=== PATIENT | female | born 1960 | race Caucasian/White ===

== ENCOUNTER 2017-02-12 06:37 | Emergency (ER) | payer OTHER ==
[~2017-02-12 06:37] MED LIST: ABILIFY30 MG PO; BUSPIRONE HCL15 MG PO; COZAAR100 MG PO; FIORICET PO; FLONASE0.05 %; HYDROCHLOROTHIA25 MG PO; IMITREX50 MG PO; METHOCARBAMOL750 MG PO; NORCO1 TA1 PO; PRILOSEC20 MG PO; TOPAMAX100 MG PO; TRAMADOL HCL50 MG PO; TRAZODONE HCL50 MG PO; ZOLOFT100 MG PO; [UNRECOGNIZED DRUG - OTHER] PO
--- NOTE | 2017-02-12 09:18 | ED NURSING NOTES ---
Clinical Report - Nurses [facility] [address] [place] [address] 02/12/2017 6:38 Patient: FRANCISCO SIMS TRIAGE Triage time 06:42. Acuity: LEVEL 4. Chief Complaint: HEADACHE. Alert. No acute distress. --06:47 Salome Wang R.N. 06:42 02/12/17. BP: 164/109. HR: 77. RR: 16. O2 saturation: 100% on room air. Temp: 98.1 F (oral). Pain level now: 07/11. --06:47 Salome Wang R.N. Weight: 61.2 kg stated. Height/Length: 60.5 inches Per Patient. BMI: 25.9. --06:45 Salome Wang R.N. Medications Abilify Oral 30mg, HS. Albuterol 90 mcg. Baclofen Oral 10 mg, 3x a day as needed. BuSpar Oral 15 mg, 3x a day. Flonase Nasal 2 sprays, daily. HCTZ 25 mg, daily. Imitrex Oral 50 mg, as needed. Lopressor Oral (Tablet 50 mg), daily. Percocet 5/325mg prn back pain . Prilosec Oral 20 mg, 2x a day. Topamax Oral 100 mg, 2x a day. Zoloft Oral 100 mg, at bedtime. --06:44 Salome Wang R.N. Allergies Codeine. Vicodin. --06:44 Salome Wang R.N. History Arrived by private vehicle. Historian: patient. Primary physician (Bhavesh). This started last night at about 2100. Treatment [employer]: None. PAST MEDICAL HX: Immunizations: up-to-date. SOCIAL HX: Heavy tobacco smoker (cigarette)- less than 1 pack per day. History of drug use. (used marijuana until about 1 month ago, states has new pain managment program with Dr. Ospina). No alcohol use. NUTRITIONAL RISK ASSESSMENT: The nutritional risk assessment revealed no deficiencies. FUNCTIONAL ASSESSMENT: Functional assessment: no impairments noted. --06:47 Salome Wang R.N. PROBLEMS: Dehydration. Diarrhea. Vomiting. Hypokalemia. Stress. Rhabdomyolysis. Anxiety Reaction. Atypical Chest Pain. Acute Pain. Hypertensive Headache. Spondylolysis. Cholecystitis. Abd pain . Muscle Strain, Upper Extremity. Depression. Environmental Allergies. Chronic Back Pain. Degenerative Joint Disease. Headache. Gastroesophageal Reflux. Sinus Problems. Chronic Headache. Arthritis. Fibromyalgia. Dental Pain. Dental Caries. Immunizations. LNMP - Last Normal Menstrual Period. URI. Tetanus Status. Hypertension. Back Pain. Migraine Headache. --06:45 Salome Wang R.N. ADDITIONAL SURGERIES: Back Surgery []. . Inguinal Hernia Repair. Tonsillectomy. Triger finger rt middle finger . Tubal Ligation. --06:45 Salome Wang R.N. Interventions ID band on patient. To treatment room. --06:47 Salome Wang R.N. PHYSICAL ASSESSMENT Ambulatory to room. Patient gowned. GENERAL / NEURO / PSYCH: Alert. Oriented X 4. Appears in no acute distress. Speech within normal limits. HEENT: No facial asymmetry noted. RESPIRATORY: Respirations not labored. CVS: Capillary refill less than 2 seconds. SKIN: Skin is warm and dry. --06:48 Salome Wang R.N. NURSING PROGRESS NOTES Head of bed elevated. Two patient identifiers checked. Call light placed in reach. Side rails up x 1. Bed placed in lowest position. Brakes of bed on. --06:48 Salome Wang R.N. Patient ready for evaluation- chart flagged. --06:48 Salome Wang R.N. 07:41 02/12/2017 Phenergan (Promethazine HCl) IM 25 mg given. Given in the left gluteus ruma. Allergies verified, confirmed 5 rights and sedative warning given to the patient. --07:41 Stefanie Dasilva R.N. 07:41 02/12/2017 Dilaudid (HYDROmorphone HCl PF) IM 2 mg given. Given in the left gluteus ruma. Allergies verified, confirmed 5 rights and sedative warning given to the patient. --07:41 Stefanie Dasilva R.NLast 07:42 02/12/17. --07:42 Stefanie Dasilva R.NLast 07:35 02/12/17. BP: 154/107. HR: 85. RR: 15. O2 saturation: 99%. Pain level now: 07/11. --07:42 Stefanie Dasilva R.NLast 07:45 02/12/17. ( pt ambulated to bathroom.). --07:45 Stefanie Dasilva R.NLast 08:00 02/12/17. ( pt stated her head pain has improved (04/10). Pt reports she took home meds buspar and benedryl in her room after dilaudid and phenergan was administered. This RN reminded the patient that home meds should not be taken while in the ED.). --08:00 Stefanie Dasilva R.NLast 08:08 02/12/17. ( Dr. Jiang notified that pt took home meds benedryl and buspar in room.). --08:08 Stefanie Dasilva R.NLast 08:13 02/12/17. ( pt groggy but awake and oriented. head of bed raised to 30 degrees.). --08:13 Stefanie Dasilva R.NLast 08:11 02/12/17. BP: 129/80. HR: 61. RR: 11. O2 saturation: 95%. --08:13 Stefanie Dasilva R.N. 08:58 02/12/17. --08:58 Stefanie Dasilva R.NLast 08:57 02/12/17. BP: 110/66. HR: 62. RR: 12. O2 saturation: 94%. --08:58 Stefanie Dasilva R.NLast 08:58 02/12/17. ( pt ambulated to bathroom.). --08:58 Stefanie Dasilva R.NLast DISPOSITION / DISCHARGE 09:15 02/12/17. Condition at departure: improved. No learning barriers present. Discharge instructions provided and reviewed with the patient. Treatments reviewed. Patient verbalized understanding. Written instructions provided in Danish. The patient was discharged by the physician. She was discharged home. She left the Emergency Department ambulatory. ( pt contacted transport service for ride. this RN spoke with the transport service to confirm the pt's discharge.). --09:15 Stefanie Dasilva R.N. 09:12 02/12/17. BP: 157/112. HR: 58. RR: 13. O2 saturation: 100%. Temp: deferred. Pain level now: 12/11. --09:15 Stefanie Dasilva R.N. 09:20 02/12/17. ( Dr. Link notified of elevated BP 157/112 upon discharge.). --09:20 Stefanie Dasilva R.N. 09:21 02/12/17. Departure time: :20. --09:21 Stefanie Dasilva R.N. Locked/Released at 02/12/2017 9:22 by Stefanie Dasilva R.N.
--- NOTE | 2017-02-12 09:18 | ED CLINICAL REPORT ---
Clinical Report - Physicians/Mid Levels [facility] [address] [place] [address] 02/12/2017 6:38 Patient: FRANCISCO SISM Time Seen: 07:02 Feb 12 2017. Arrived- By private vehicle. Historian- patient. CPT: ER phys charges level 4 (#[id number]). HISTORY OF PRESENT ILLNESS Is still present. Chief Complaint: HEADACHE. This started last night. Onset during light activity. It is described as similar to previous headaches and "pain". Located in the occipital region. At its maximum, severity described as moderate. When seen in the E.D., severity described as moderate. Modifying factors: worsened by bright light and moving head; relieved by rest. The patient has had photophobia and nausea. No preceding symptoms or blurred vision. Similar symptoms previously: Several times, as bad. Diagnosis: migraine. Recent medical care: Not recently seen/assessed. REVIEW OF SYSTEMS No fever, muscle aches, sinus pressure, ear pain or sore throat. No head injury, chest pain, difficulty breathing, cough or abdominal pain. No diarrhea, pain with urination, skin rash, enlarged lymph nodes or back pain. All systems otherwise negative, except as recorded above. PAST HISTORY Dehydration. Diarrhea. Vomiting. Hypokalemia. Stress. Rhabdomyolysis. Anxiety Reaction. Atypical Chest Pain. Acute Pain. Hypertensive Headache. Spondylolysis. Cholecystitis. Abd pain . Muscle Strain, Upper Extremity. Depression. Environmental Allergies. Chronic Back Pain. Degenerative Joint Disease. Headache. Gastroesophageal Reflux. Sinus Problems. Chronic Headache. Arthritis. Fibromyalgia. Dental Pain. Dental Caries. Immunizations. LNMP - Last Normal Menstrual Period. URI. Tetanus Status. Hypertension. Back Pain. Migraine Headache. --06:45 Salome Wang R.N. ADDITIONAL SURGERIES: Back Surgery []. . Inguinal Hernia Repair. Tonsillectomy. Triger finger rt middle finger . Tubal Ligation. Medications: Abilify Oral 30mg, HS. Albuterol 90 mcg. Baclofen Oral 10 mg, 3x a day as needed. BuSpar Oral 15 mg, 3x a day. Flonase Nasal 2 sprays, daily. HCTZ 25 mg, daily. Imitrex Oral 50 mg, as needed. Lopressor Oral (Tablet 50 mg), daily. Percocet 5/325mg prn back pain . Prilosec Oral 20 mg, 2x a day. Topamax Oral 100 mg, 2x a day. Zoloft Oral 100 mg, at bedtime. Allergies: Codeine. Vicodin. SOCIAL HISTORY Heavy tobacco smoker (cigarette)- 1 pack per day. History of drug use: marijuana. No alcohol use. ADDITIONAL NOTES The nursing notes have been reviewed. PHYSICAL EXAM Vital Signs: 02/12/2017 06:42 BP: 164/109. HR: 77. RR: 16. O2 saturation: 100%. Temp: 98.1 F. Pain level now: 8/10. Appearance: Alert. Appears to be in pain. Patient in moderate distress. Eyes: Photophobia present. Pupils equal, round and reactive to light. ENT: Ears normal. Nose normal. Pharynx normal. Neck: Normal inspection. Neck supple. No meningeal signs. CVS: Normal heart rate and rhythm. Heart sounds normal. Pulses normal. Respiratory: No respiratory distress. Breath sounds normal. Abdomen: Soft and nontender. Back: Normal inspection. Skin: Skin warm. Normal skin color. No rash. Extremities: Extremities exhibit normal ROM. No lower extremity edema. Neuro: Oriented X 3. Alert. Mood/affect normal. Speech normal. Cranial nerves normal (as tested). No cerebellar findings. No motor deficit. No sensory deficit. Reflexes normal. PROGRESS AND PROCEDURES Course of Care: Pt took her own sedating medications while in the room that became additive to the dilaudid and phenergan and desaturated to 89%. 02 applied and sat stable but will need obseravtion until medications wear off and sedation stable. Pt sedation slowly resolved and the patient was safe to discharge home. Patient/family counseled. Disposition: Discharged. Condition: stable and improved. CLINICAL IMPRESSION Acute and chronic recurrent migraine headache without aura, with status migrainosus- poorly controlled. INSTRUCTIONS Warnings: Further evaluation is necessary. SEDATIVE MEDICATION: You were given sedative medication during your visit. Do not drive or operate dangerous machinery. Your Current Medications: CONTINUE TAKING THE FOLLOWING MEDICATIONS: Abilify Oral : 30mg HS. Albuterol : 90 mcg. Baclofen Oral : 10 mg 3x a day, prn. BuSpar Oral : 15 mg 3x a day. Flonase Nasal : 2 sprays daily. HCTZ : 25 mg daily. Imitrex Oral : 50 mg, prn. Lopressor Oral : Tablet 50 mg, daily. Percocet 5/325mg prn back pain *. Prilosec Oral : 20 mg 2x a day. Topamax Oral : 100 mg 2x a day. Zoloft Oral : 100 mg at bedtime. Follow-up: Follow up with your doctor in one week. Call for an appointment. Understanding of the discharge instructions verbalized by patient. (Electronically signed by Garo Jiang MD 02/14/2017 10:19)
--- NOTE | 2017-02-12 09:19 | ED ORDER SUMMARY ---
..... Patient: FRANCISCO SIMS OrderSheet [facility] VisitID: [id number] [address] [place] [address] 56y, F Registration Date/Time: 02/12/2017 ORDER SHEET Weight: 61.2 kg (stated) Allergies: Codeine, Vicodin GENERAL ORDERS: MEDICATION ORDERS: Dilaudid IM 2 mg (NOW) (07:02/12/2017 Maurice ASENCIO) (Ack 7:27 RMarsnaman R.N.) (7:41 RMarsnaman R.N.) Phenergan IM 25 mg (NOW) (07:02/12/2017 Maurice ASENCIO) (Ack 7:27 Isabela R.N.) (7:41 RMarsnaman R.N.) IV FLUIDS: ORDER SHEET NOTES: [Electronically signed by Stefanie Dasilva R.N. (09:02/12/2017)] [Electronically signed by Garo Jiang MD (10:19 02/14/2017)] [Electronically locked/signed by Stefanie Dasilva R.N. (09:02/12/2017)]
--- NOTE | 2017-02-12 09:19 | ED ORDER SUMMARY ---
..... Patient: FRANCISCO SIMS OrderSheet [facility] VisitID: [id number] [address] [place] [address] 56y, F Registration Date/Time: 02/12/2017 ORDER SHEET Weight: 61.2 kg (stated) Allergies: Codeine, Vicodin GENERAL ORDERS: MEDICATION ORDERS: Dilaudid IM 2 mg (NOW) (07:02/12/2017 Maurice ASENCIO) (Ack 7:27 RMarsnaman R.N.) (7:41 RMarsnaman R.N.) Phenergan IM 25 mg (NOW) (07:02/12/2017 Maurice ASENCIO) (Ack 7:27 Isabela R.N.) (7:41 RMarsnaman R.N.) IV FLUIDS: ORDER SHEET NOTES: [Electronically signed by Stefanie Dasilva R.N. (09:02/12/2017)] [Electronically signed by Garo Jiang MD (10:19 02/14/2017)] [Electronically locked/signed by Stefanie Dasilva R.N. (09:02/12/2017)]
--- NOTE | 2017-02-14 10:19 | ED MED RECONCILIATION SUMMARY ---
Patient: FRANCISCO SIMS Medication Reconciliation Report [facility] VisitID: [id number] [address] [place] [address] 56y, F Registration Date/Time: 02/12/2017 Weight: 61.2 kg Height/Length: 60 in. BMI: 25.9 ALLERGIES: Codeine, Vicodin The patient's Home Medications are listed below: CONTINUE TAKING THE FOLLOWING MEDICATIONS: Abilify Oral 30mg, HS Albuterol 90 mcg Baclofen Oral 10 mg, 3x a day BuSpar Oral 15 mg, 3x a day Flonase Nasal 2 sprays, daily HCTZ 25 mg, daily Imitrex Oral 50 mg Lopressor Oral (50 mg), daily Percocet 5/325mg prn back pain Prilosec Oral 20 mg, 2x a day Topamax Oral 100 mg, 2x a day Zoloft Oral 100 mg, at bedtime The source(s) of the original Home Medication information: Not obtained. The following Medications were given to the patient in the Emergency Department: Phenergan [IM] IM 25 mg, administered: 02/12/2017 7:41:00 AM Dilaudid [IM] IM 2 mg, administered: 02/12/2017 7:41:00 AM The following Medications were prescribed to the patient: None.
--- NOTE | 2017-02-14 10:19 | ED MAR SUMMARY ---
..... Medication Administration Record [facility] [address] [place] [address] Patient: FRANCISCO SIMS Visit ID: [id number] 56y, F Weight: 61.2 kg Height/Length: 60.5 in BMI: 25.9 ALLERGIES: Codeine, Vicodin Given 07:02/12/2017 Stefanie Dasilva, RLastN. Medication Administered: DILAUDID [IM] (HYDROMORPHONE HCL PF), Dose: 2 mg IM. Medication Ordered: Dilaudid IM 2 mg (NOW). Given 07:02/12/2017 Stefanie Dasilva, RLastN. Medication Administered: PHENERGAN [IM] (PROMETHAZINE HCL), Dose: 25 mg IM. Medication Ordered: Phenergan IM 25 mg (NOW).
--- NOTE | 2017-02-14 10:19 | ED MED RECONCILIATION SUMMARY ---
Patient: FRANCISCO SIMS Medication Reconciliation Report [facility] VisitID: [id number] [address] [place] [address] 56y, F Registration Date/Time: 02/12/2017 Weight: 61.2 kg Height/Length: 60 in. BMI: 25.9 ALLERGIES: Codeine, Vicodin The patient's Home Medications are listed below: CONTINUE TAKING THE FOLLOWING MEDICATIONS: Abilify Oral 30mg, HS Albuterol 90 mcg Baclofen Oral 10 mg, 3x a day BuSpar Oral 15 mg, 3x a day Flonase Nasal 2 sprays, daily HCTZ 25 mg, daily Imitrex Oral 50 mg Lopressor Oral (50 mg), daily Percocet 5/325mg prn back pain Prilosec Oral 20 mg, 2x a day Topamax Oral 100 mg, 2x a day Zoloft Oral 100 mg, at bedtime The source(s) of the original Home Medication information: Not obtained. The following Medications were given to the patient in the Emergency Department: Phenergan [IM] IM 25 mg, administered: 02/12/2017 7:41:00 AM Dilaudid [IM] IM 2 mg, administered: 02/12/2017 7:41:00 AM The following Medications were prescribed to the patient: None.
--- NOTE | 2017-02-14 10:19 | ED MAR SUMMARY ---
..... Medication Administration Record [facility] [address] [place] [address] Patient: FRANCISCO SIMS Visit ID: [id number] 56y, F Weight: 61.2 kg Height/Length: 60.5 in BMI: 25.9 ALLERGIES: Codeine, Vicodin Given 07:02/12/2017 Stefanie Dasilva, RLastN. Medication Administered: DILAUDID [IM] (HYDROMORPHONE HCL PF), Dose: 2 mg IM. Medication Ordered: Dilaudid IM 2 mg (NOW). Given 07:02/12/2017 Stefanie Dasilva, RLastN. Medication Administered: PHENERGAN [IM] (PROMETHAZINE HCL), Dose: 25 mg IM. Medication Ordered: Phenergan IM 25 mg (NOW).
--- NOTE | 2017-02-14 10:19 | ED DISCHARGE INSTRUCTIONS ---
Patient: FRANCISCO SIMS General Instructions [facility] VisitID: [id number] [address] [place] [address] 56y, F Registration Date/Time: 02/12/2017 Acute and chronic recurrent migraine headache without aura, with status migrainosus- poorly controlled. INSTRUCTIONS Warnings: Further evaluation is necessary. SEDATIVE MEDICATION: You were given sedative medication during your visit. Do not drive or operate dangerous machinery. Your Current Medications: CONTINUE TAKING THE FOLLOWING MEDICATIONS: Abilify Oral : 30mg HS. Albuterol : 90 mcg. Baclofen Oral : 10 mg 3x a day, prn. BuSpar Oral : 15 mg 3x a day. Flonase Nasal : 2 sprays daily. HCTZ : 25 mg daily. Imitrex Oral : 50 mg, prn. Lopressor Oral : Tablet 50 mg, daily. Percocet 5/325mg prn back pain *. Prilosec Oral : 20 mg 2x a day. Topamax Oral : 100 mg 2x a day. Zoloft Oral : 100 mg at bedtime. Follow-up: Follow up with your doctor in one week. Call for an appointment. Understanding of the discharge instructions verbalized by patient. ADDITIONAL INFORMATION Migraine Headache Migraine headaches are related to changes in blood flow to the brain. This causes throbbing or constant pain on one or both sides of the head. The pain may last from a few hours to several days. There is usually nausea, vomiting, sensitivity to light and sound, and blurred vision. A migraine attack may be triggered by emotional stress, hormone changes during the menstrual cycle, oral contraceptives, alcohol use, certain foods containing tyramine, eye strain, weather changes, missing meals, or too little or too much sleep. Home Care For This Headache: 1) If you were given pain medicine for this headache, do not drive yourself home . Arrange for a ride, instead. When you get home, try to sleep. You should feel much better when you wake up. 2) Migraine headaches may improve with an ice pack on the forehead or at the base of the skull. Heat to the back of your neck may relieve any neck spasm. 3) Drink only clear liquids or eat a very light diet to avoid nausea/vomiting until symptoms improve. Preventing Future Headaches: 1) Pay attention to those factors that seem to trigger your headache. Try to avoid them when you can. If you have frequent headaches, it is useful to keep a diary of what you were doing, feeling or eating in the hours before each attack. Show this to your doctor to help find the cause of your headaches. a) If you feel that stress is a factor in your headaches, look at the sources of stress in your life. Find ways to release the build-up of those stresses by using regular exercise, relaxation methods (yoga, meditation), bio-feedback or simply taking time-out for yourself. For more information about this, consult your doctor or go to a local bookstore and review books and tapes on this subject. b) Tyramine is a substance present in the following foods : chocolate, yogurt, all cheeses except cottage cheese and cream cheese. smoked or pickled fish and meat (including guerrero, caviar, bologna, pepperoni, salami), liver, avocados, bananas, figs, raisins, and red wine. Be aware that these foods may trigger a migraine in some persons. Try taking these foods out of your diet for 1-2 months to see if this reduces headache frequency. Treating Future Attacks: 1) At the first sign of a headache, take time out if possible. Find a quiet, dark, comfortable place to sit or lie down. Let yourself relax or sleep. 2) An ice pack on the forehead or area of greatest pain may help. If you are having muscle spasm and tightness of the neck, a heating pad and massage to this area may be helpful. 3) If you have been prescribed a medicine to stop a migraine headache, use this at the very first warning sign of the headache (aura or initial pain) for best results. Follow Up with your doctor if the headache is not better within the next 24 hours. If you have frequent headaches you should discuss a treatment plan with your primary care doctor. Ask if you can have medicine to take at home the next time you get a bad headache. Poorly controlled chronic headaches may require a referral to a neurologist (headache specialist). Get Prompt Medical Attention if any of the following occur: Your head pain gets worse, or does not improve within 24 hours Repeated vomiting (cant keep liquids down) Sinus or ear or throat pain (not already reported) Fever of 100.4 F (38 C) or higher, or as directed by your healthcare provider Stiff neck Extreme drowsiness, confusion or fainting Dizziness, vertigo (dizziness with spinning sensation) Weakness of an arm or leg or one side of the face Difficulty with speech or vision You have been given the following additional information: Headache, Migraine (Classical) (Electronically signed by Garo Jiang MD 02/14/2017 10:19)
== END 2017-02-12 09:20 | disposition home or self-care (01) ==
LOC: ED SRH 06:37
DX: G43.011 Migraine without aura, intractable, with status migrainosus (principal); F17.210 Nicotine dependence, cigarettes, uncomplicated; I10 Essential (primary) hypertension; Z79.899 Other long term (current) drug therapy; Z88.5 Allergy status to narcotic agent

== ENCOUNTER 2017-02-18 19:29 | Emergency (ER) | payer OTHER ==
--- NOTE | 2017-02-18 22:26 | ED NURSING NOTES ---
Clinical Report - Nurses [facility] [address] [place] [address] 02/18/2017 19:30 Patient: FRANCISCO SIMS TRIAGE Triage time 20:15. Acuity: LEVEL 3. Chief Complaint: (Hypertension). --20:21 Sheriff Proctor R.N. 20:14 02/18/17. BP: 167/98. HR: 75. RR: 18. O2 saturation: 97%. Temp: 97.2 F. Pain level now: 03/11. --20:21 Sheriff Proctor R.N. 20:14 02/18/17. BP: 167/98. HR: 75. RR: 18. O2 saturation: 97%. Temp: 97.2 F. Pain level now: 03/11. --20:22 Sheriff Proctor R.N. Weight: 61.2 kg estimated. Height/Length: 60.5 inches Estimated. BMI: 25.9. --02:46 Salome Wang R.N. Medications Abilify Oral 30mg, HS. Albuterol 90 mcg. Baclofen Oral 10 mg, 3x a day as needed. BuSpar Oral 15 mg, 3x a day. Flonase Nasal 2 sprays, daily. HCTZ 25 mg, daily. Imitrex Oral 50 mg, as needed. Lopressor Oral (Tablet 50 mg), daily. Percocet 5/325mg prn back pain . Prilosec Oral 20 mg, 2x a day. Topamax Oral 100 mg, 2x a day. Zoloft Oral 100 mg, at bedtime. --20:18 Sheriff Proctor R.N. Allergies Codeine. Vicodin. --20:18 Sheriff Proctor R.N. History Arrived by private vehicle. Historian: patient. Unaccompanied. Onset. (1 week). ( Patient noted blood pressure going up in the past week despite on blood pressure medications.. B/P 187/177 at home, taken at 1830.). SOCIAL HX: Smoker- current status unknown (8 cigarettes daily.). Occasional alcohol use. No drug use. FALL RISK ASSESSMENT: Fall risk assessment completed. No fall risk identified. NUTRITIONAL RISK ASSESSMENT: The nutritional risk assessment revealed no deficiencies. FUNCTIONAL ASSESSMENT: Functional assessment: no impairments noted. LEARNING NEEDS ASSESSMENT: The learning needs assessment revealed no barriers. SKIN INTEGRITY ASSESSMENT: Skin integrity risk assessment completed. No skin integrity risk identified. --20:21 Sheriff Proctor R.N. ( [place] sharp pain on the chest about an hour ago. Denies chest pain, but discomfort.). --20:24 Sheriff Proctor R.N. PROBLEMS: Dehydration. Diarrhea. Vomiting. Hypokalemia. Stress. Rhabdomyolysis. Anxiety Reaction. Atypical Chest Pain. Acute Pain. Normal Exam. Hypertensive Headache. Spondylolysis. Cholecystitis. Abd pain . Muscle Strain, Upper Extremity. Depression. Environmental Allergies. Chronic Back Pain. Degenerative Joint Disease. Headache. Gastroesophageal Reflux. Sinus Problems. Chronic Headache. Arthritis. Fibromyalgia. Dental Pain. Dental Caries. Immunizations. LNMP - Last Normal Menstrual Period. URI. Tetanus Status. Hypertension. Back Pain. Migraine Headache. --20:19 Sheriff Proctor R.N. Interventions ID band on patient. To room. --20:21 Sheriff Proctor R.N. PHYSICAL ASSESSMENT Ambulatory to room. GENERAL / NEURO / PSYCH: Alert. Oriented X 4. HEENT: Pupils equal, round and reactive to light. No facial asymmetry noted. Mucous membranes are pink. RESPIRATORY: Respirations not labored. CVS: Capillary refill less than 2 seconds. Pulses within normal limits. SKIN: Skin is warm and dry. --20:24 Sheriff Proctor R.N. NURSING PROGRESS NOTES Patient gowned. Head of bed elevated. Two patient identifiers checked. Call light placed in reach. Side rails up x 2. Bed placed in lowest position. Brakes of bed on. Patient ready for evaluation- chart flagged. --20:25 Sheriff Proctor R.N. 21:05 02/18/2017 Site #1 started via IV in the left antecubital space with an 20g angiocath, with aseptic technique and good blood return; one attempt. Blood drawn: rainbow set. Labeled in the presence of the patient and sent to the lab. Saline lock flushed with 10 mL saline. --21:05 Sheriff Proctor R.N. 21:05 02/18/2017 Lopressor (Metoprolol Tartrate) IVP 5 mg given over 1 minute(s) via site #1. Allergies verified and confirmed 5 rights. IV patency established site checked: no pain, redness, or swelling flushed thoroughly pre- and post-medication administration. IVP given by RN. --21:05 Sheriff Proctor R.N. 21:46 02/18/17. BP: 131/73. HR: 72. RR: 18. O2 saturation: 98%. Temp: 98.4 F. Pain level now: 01/11. --21:48 Sheriff Proctor R.N. DISPOSITION / DISCHARGE 22:36 02/18/2017 Site #1 removed upon discharge. Catheter intact. Manual pressure and bandage applied. --22:36 Salome Wang R.N. Condition at departure: improved and stable. No learning barriers present. Discharge instructions provided and reviewed with the patient. Patient verbalized understanding. Written instructions provided in Yakut. The patient was discharged home. She left the Emergency Department ambulatory and via private vehicle. --22:36 Salome Wang R.N. 22:35 02/18/17. BP: 120/75. HR: 71. RR: 15. O2 saturation: 98% on room air. Temp: deferred. Pain level now: 0/10. --22:36 Salome Wang R.N. Locked/Released at 02/19/2017 2:47 by Salome Wang R.N.
--- NOTE | 2017-02-18 22:26 | ED ORDER SUMMARY ---
..... Patient: FRANCISCO SIMS OrderSheet [facility] VisitID: [id number] [address] [place] [address] 57y, F Registration Date/Time: 02/18/2017 ORDER SHEET Weight: 61.2 kg (estimated) Allergies: Codeine, Vicodin GENERAL ORDERS: Casing Trimmer (Continuous) (20:44 02/18/2017 HBivens A.R.N.P.) (Ack 20:58 ALawrence ER Tech1) CBC w Diff Urgent (20:44 02/18/2017 HBivens A.R.N.P.) (Ack 20:58 ALawrence ER Tech1) BMP Urgent (20:44 02/18/2017 HBivens A.R.N.P.) (Ack 20:58 ALawrence ER Tech1) MEDICATION ORDERS: IV FLUIDS: Lopressor IV 5 mg (HIGH ALERT MEDICATION, NOW) (20:44 02/18/2017 HBivens A.R.N.P.) (21:05 SSambou R.N.) IV Saline Lock (20:44 02/18/2017 HBivens A.R.N.P.) (21:05 SSambou R.N.) ORDER SHEET NOTES: [Electronically signed by Dasha Robbins A.R.N.P. (23:07 02/18/2017)] [Electronically signed by Salome WangNLast (02:47 02/19/2017)] [Electronically locked/signed by Salome WangNLast (02:47 02/19/2017)]
--- NOTE | 2017-02-18 22:26 | ED CLINICAL REPORT ---
Clinical Report - Physicians/Mid Levels [facility] [address] [place] [address] 02/18/2017 19:30 Patient: FRANCISCO SIMS Time Seen: 20:33; initial patient contact, initial documentation, patient care assumed. Arrived- By private vehicle. Historian- patient. HISTORY OF PRESENT ILLNESS Chief Complaint: BLOOD PRESSURE ELEVATED. At its maximum, severity described as moderate. When seen in the E.D., severity described as moderate. This started about 3 weeks ago and is still present. No current or associated symptoms. 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 Similar symptoms previously: Several times, as bad. Recent medical care: The patient was seen recently at this facility in the emergency department and a clinic. ( seen here a few weeks ago for headache, f/u at clinic and pressure was high then too). REVIEW OF SYSTEMS No fever, sore throat, sinus drainage, nasal congestion or cough. No difficulty breathing, chest pain, vomiting, diarrhea or headache. No double vision. All systems otherwise negative, except as recorded above. PAST HISTORY See nurses notes. PROBLEMS: Dehydration. Diarrhea. Vomiting. Hypokalemia. Stress. Rhabdomyolysis. Anxiety Reaction. Atypical Chest Pain. Acute Pain. Normal Exam. Hypertensive Headache. Spondylolysis. Cholecystitis. Abd pain . Muscle Strain, Upper Extremity. Depression. Environmental Allergies. Chronic Back Pain. Degenerative Joint Disease. Headache. Gastroesophageal Reflux. Sinus Problems. Chronic Headache. Arthritis. Fibromyalgia. Dental Pain. Dental Caries. Immunizations. LNMP - Last Normal Menstrual Period. URI. Tetanus Status. Hypertension. Back Pain. Migraine Headache. --20:19 Sambou, Drum Plater, R.N. SOCIAL HISTORY Light tobacco smoker. Occasional alcohol use. No drug use. No recent travel. Is a local resident. FAMILY HISTORY Negative. ADDITIONAL NOTES The nursing notes have been reviewed with agreement regarding the chief complaint, HPI, ROS, PMH and patient medications and allergies. PHYSICAL EXAM Vital Signs: 02/18/2017 20:15 BP: 167/98. HR: 75. RR: 18. O2 saturation: 97%. Temp: 97.2 F. Pain level now: 10. Have been reviewed as abnormal and appear to be correct. Hypertensive. Heart rate normal. Respiratory rate normal. Temperature normal. Oxygen saturation normal. Appearance: Alert. No acute distress. Eyes: Pupils equal, round and reactive to light. Eyes normal inspection. ENT: Ears normal. Nose normal. Pharynx normal. Neck: Normal inspection. Neck supple. CVS: Normal heart rate and rhythm. Heart sounds normal. Pulses normal. Respiratory: No respiratory distress. Breath sounds normal. Chest nontender. Back: Normal inspection. Skin: Skin warm and dry. Normal skin color. No rash. Normal skin turgor. Extremities: Extremities exhibit normal ROM. No lower extremity edema. Neuro: Oriented X 3. No motor deficit. No sensory deficit. LABS, X-RAYS, AND EKG Laboratory Tests: CBC w Diff: (SWATI: 02/18/2017 20:50) ( MsgRcvd 02/18/2017 21:03) Final results Test Result Flag Units (Reference) WHITE BLOOD COUNT 7.9 K/uL (4.5-11.5) RED BLOOD COUNT 3.71 L M/uL (4.00-5.20) HEMOGLOBIN 11.7 L gm/dL (12.0-16.0) HEMATOCRIT 34.1 L % (36.0-46.0) MEAN CELL VOLUME 92 fL (80-100) MEAN CORPUSCULAR HGB 32 pg (26-34) MEAN CORPUSCULAR HGB CONC 34 g/dL (31-37) RED CELL DISTRIBUTION WIDTH 13.4 % (11.6-14.8) PLATELET COUNT 204 K/uL (150-400) NEUTROPHIL % 46.8 L % (50-75) LYMPH % 42.0 H % (25-40) MONO % 9.3 % (3-14) EOSINOPHIL % 1.7 % (0-4) BASOPHIL % 0.2 % (0-2) BMP: (SWATI: 02/18/2017 20:50) ( MsgRcvd 02/18/2017 21:29) Final results Test Result Flag Units (Reference) GLUCOSE 107 mg/dL (70-110) BUN 18 mg/dL (7-18) CREATININE 0.9 mg/dL (0.6-1.3) Estimated GFR >60 mL/min Estimated GFR- >60 mL/min Note: Persistent reduction over 3 months in eGFR<60 mL/min/1.73 m2 defines CKD. Patients with eGFR values>=60 mL/min/1.73 m2 may also have CKD if evidence ofpersistent proteinuria. Additional information may be foundat www.kidney.org. SODIUM 142 mmol/L (136-145) POTASSIUM 3.7 mmol/L (3.5-5.1) CHLORIDE 106 mmol/L (98-107) CARBON DIOXIDE 25 mmol/L (21-32) CALCIUM 9.0 mg/dL (8.5-10.1) . PROGRESS AND PROCEDURES Course of Care: 5. pt telling me thank you for the care and stated I was one of her favorite and she felt much better and she always enjoys seeing me when she comes in. 02/18/2017 21:46 BP: 131/73. HR: 72. RR: 18. O2 saturation: 98%. Temp: 98.4 F. Pain level now: 2/10. Vital Signs: have been reviewed as normal and appear to be correct. Patient counseled in person regarding the patient's stable condition and diagnosis. 21:53. Differential Diagnosis: Other possible considerations: htn, tia, cva, headache. Above considerations are based on history, physical exam and laboratory data. Differential diagnosis was discussed with patient. Disposition: Discharged home in good and improved condition (22:25). Condition: good and stable. CLINICAL IMPRESSION Uncontrolled hypertension. INSTRUCTIONS Warnings: GENERAL WARNINGS: Return or contact your physician immediately if your condition worsens or changes unexpectedly, if not improving as expected, or if other problems arise. Specifically return if problem worsens. Follow-up: Follow up with your doctor tomorrow even if well. Call for an appointment. Summary of care provided to patient. Understanding of the discharge instructions verbalized by patient. (Electronically signed by Dasha Robbins A.R.N.P. 02/18/2017 23:07)
--- NOTE | 2017-02-18 22:26 | ED ORDER SUMMARY ---
..... Patient: FRANCISCO SIMS OrderSheet [facility] VisitID: [id number] [address] [place] [address] 57y, F Registration Date/Time: 02/18/2017 ORDER SHEET Weight: 61.2 kg (estimated) Allergies: Codeine, Vicodin GENERAL ORDERS: Ortho/Prosthetic Aide (Continuous) (20:44 02/18/2017 HBivens A.R.N.P.) (Ack 20:58 ALawrence ER Tech1) CBC w Diff Urgent (20:44 02/18/2017 HBivens A.R.N.P.) (Ack 20:58 ALawrence ER Tech1) BMP Urgent (20:44 02/18/2017 HBivens A.R.N.P.) (Ack 20:58 ALawrence ER Tech1) MEDICATION ORDERS: IV FLUIDS: Lopressor IV 5 mg (HIGH ALERT MEDICATION, NOW) (20:44 02/18/2017 HBivens A.R.N.P.) (21:05 SSambou R.N.) IV Saline Lock (20:44 02/18/2017 HBivens A.R.N.P.) (21:05 SSambou R.N.) ORDER SHEET NOTES: [Electronically signed by Dasha Robbins A.R.N.P. (23:07 02/18/2017)] [Electronically signed by Salome WangNLast (02:47 02/19/2017)] [Electronically locked/signed by Salome WangNLast (02:47 02/19/2017)]
--- NOTE | 2017-02-19 02:48 | ED MED RECONCILIATION SUMMARY ---
Patient: FRANCISCO SIMS Medication Reconciliation Report [facility] VisitID: [id number] [address] [place] [address] 57y, F Registration Date/Time: 02/18/2017 Weight: 61.2 kg Height/Length: (not available) BMI: 25.9 ALLERGIES: Codeine, Vicodin The patient's Home Medications are listed below: THE FOLLOWING MEDICATIONS NEED TO BE RECONCILED: Abilify Oral 30mg, HS Albuterol 90 mcg Baclofen Oral 10 mg, 3x a day BuSpar Oral 15 mg, 3x a day Flonase Nasal 2 sprays, daily HCTZ 25 mg, daily Imitrex Oral 50 mg Lopressor Oral (50 mg), daily Percocet 5/325mg prn back pain Prilosec Oral 20 mg, 2x a day Topamax Oral 100 mg, 2x a day Zoloft Oral 100 mg, at bedtime The source(s) of the original Home Medication information: Not obtained. The following Medications were given to the patient in the Emergency Department: Lopressor [IVP] IVP 5 mg, administered: 02/18/2017 9:05:00 PM The following Medications were prescribed to the patient: None.
--- NOTE | 2017-02-19 02:48 | ED MAR SUMMARY ---
..... Medication Administration Record [facility] [address] [place] [address] Patient: FRANCISCO SIMS Visit ID: [id number] 57y, F Weight: 61.2 kg Height/Length: 60.5 in BMI: 25.9 ALLERGIES: Codeine, Vicodin Given 21:05 02/18/2017 Sheriff Proctor R.N. Medication Administered: LOPRESSOR [IVP] (METOPROLOL TARTRATE), Dose: 5 mg IVP over 1 minute(s), Site: #1 left AC. Medication Ordered: Lopressor IV 5 mg (HIGH ALERT MEDICATION, NOW).
--- NOTE | 2017-02-19 02:48 | ED MED RECONCILIATION SUMMARY ---
Patient: FRANCISCO SIMS Medication Reconciliation Report [facility] VisitID: [id number] [address] [place] [address] 57y, F Registration Date/Time: 02/18/2017 Weight: 61.2 kg Height/Length: (not available) BMI: 25.9 ALLERGIES: Codeine, Vicodin The patient's Home Medications are listed below: THE FOLLOWING MEDICATIONS NEED TO BE RECONCILED: Abilify Oral 30mg, HS Albuterol 90 mcg Baclofen Oral 10 mg, 3x a day BuSpar Oral 15 mg, 3x a day Flonase Nasal 2 sprays, daily HCTZ 25 mg, daily Imitrex Oral 50 mg Lopressor Oral (50 mg), daily Percocet 5/325mg prn back pain Prilosec Oral 20 mg, 2x a day Topamax Oral 100 mg, 2x a day Zoloft Oral 100 mg, at bedtime The source(s) of the original Home Medication information: Not obtained. The following Medications were given to the patient in the Emergency Department: Lopressor [IVP] IVP 5 mg, administered: 02/18/2017 9:05:00 PM The following Medications were prescribed to the patient: None.
--- NOTE | 2017-02-19 02:48 | ED MAR SUMMARY ---
..... Medication Administration Record [facility] [address] [place] [address] Patient: FRANCISCO SIMS Visit ID: [id number] 57y, F Weight: 61.2 kg Height/Length: 60.5 in BMI: 25.9 ALLERGIES: Codeine, Vicodin Given 21:05 02/18/2017 Sheriff Proctor R.N. Medication Administered: LOPRESSOR [IVP] (METOPROLOL TARTRATE), Dose: 5 mg IVP over 1 minute(s), Site: #1 left AC. Medication Ordered: Lopressor IV 5 mg (HIGH ALERT MEDICATION, NOW).
--- NOTE | 2017-02-19 02:48 | ED DISCHARGE INSTRUCTIONS ---
Patient: FRANCISCO SIMS General Instructions [facility] VisitID: [id number] [place] [address] 57y, F Registration Date/Time: 02/18/2017 Uncontrolled hypertension. INSTRUCTIONS Warnings: GENERAL WARNINGS: Return or contact your physician immediately if your condition worsens or changes unexpectedly, if not improving as expected, or if other problems arise. Specifically return if problem worsens. Follow-up: Follow up with your doctor tomorrow even if well. Call for an appointment. Summary of care provided to patient. Understanding of the discharge instructions verbalized by patient. ADDITIONAL INFORMATION Hypertension, Out Of Control (Established) Your blood pressure was unusually high today. This can occur as a result of missing doses of your blood pressure medicine. Some asthma inhalers, decongestants, diet pills, and street drugs such as cocaine and amphetamine can worsen hypertension. An increase in body weight, increase in salt intake, smoking, and caffeine are other causes. Emotional upset or acute pain can cause a sudden rapid rise in blood pressure which may return to normal after a period of rest. A normal blood pressure is less than 140/90. The first (top) number is the systolic pressure. The second (bottom) number is the diastolic pressure. Hypertension exists when either the top number is 140 or higher, OR the bottom number is 90 or higher on repeated measurements. Home Care: All patients with high blood pressure should do the following to lower their pressure. If you are on blood pressure medicines, then these methods may reduce or eliminate your need for medicines in the future. Begin a weight-loss program if you are overweight. Reduce your salt intake. Avoid high-salt foods (olives, pickles, smoked meats, salted potato chips, etc.). Do not add salt to your food at the table. Use only small amounts of salt when cooking. Begin an exercise program. Discuss with your doctor what type of exercise program would be best for you. It doesnt have to be difficult. Even brisk walking for 20 minutes3 times a week is a good form of exercise. Avoid medicines which contain heart stimulants. This includes many cold and sinus decongestant pills and sprays as well as diet pills. Check the warnings about hypertension on the label. Stimulants such as amphetamine or cocaine could be lethal for someone with hypertension. Never take these. Limit your caffeine intake or switch to decaf. Stop smoking. If you are a long-time smoker, this can be hard. Enroll in a stop-smoking program to improve your chance of success. Talk to your physician about ways to improve your chance of success. Learning how to handle stress better is an important part of any program to lower blood pressure. Learn about relaxation methods such as meditation, yoga, or biofeedback. If medicines were prescribed, take them exactly as directed. Missing doses may cause your blood pressure to get out of control. Consider buying an automatic blood pressure machine (available at many pharmacies). Use this to monitor your blood pressure and report to your doctor. Follow Up: Regular visits to your own doctor for blood pressure checks and medicine adjustment is an important part of your care. Make a follow-up appointment as directed by our staff. Get Prompt Medical Attention if any of the following occur: Chest, arm, shoulder, neck, or upper back pain Shortness of breath Severe headache Throbbing or rushing sound in the ears Nosebleed Extreme drowsiness, confusion, or fainting Dizziness or vertigo (dizziness with spinning sensation) Weakness of an arm or leg or one side of the face Difficulty with speech or vision You have been given the following additional information: Hypertension, Established, Out Of Control (Electronically signed by Dasha Robbins A.R.N.P. 02/18/2017 23:07)
== END 2017-02-18 22:35 | disposition home or self-care (01) ==
LOC: ED SRH 19:29
DX: I10 Essential (primary) hypertension (principal); K21.9 Gastro-esophageal reflux disease without esophagitis; F17.210 Nicotine dependence, cigarettes, uncomplicated; Z88.5 Allergy status to narcotic agent
CPT/HCPCS: 90047; 95059

== ENCOUNTER 2017-02-19 15:39 | Emergency (ER) | payer OTHER ==
--- NOTE | 2017-02-19 17:15 | ED ORDER SUMMARY ---
..... Patient: FRANCISCO SIMS OrderSheet [facility] VisitID: [id number] [address] [place] [address] 57y, F Registration Date/Time: 02/19/2017 ORDER SHEET Weight: 61.2 kg (stated) Allergies: Codeine, Vicodin GENERAL ORDERS: EKG - ER Stat (15:58 02/19/2017 EKoroleva P.A.-C) (Ack 16:03 Rubin) (16:11 SReitz R.N.) Dust Box Tender (Continuous) (15:59 02/19/2017 EKoroleva P.A.-C) (16:11 SReitz R.N.) MEDICATION ORDERS: IV FLUIDS: IV Saline Lock (15:58 02/19/2017 EKoroleva P.A.-C) (Ack 16:11 SReitz R.N.) Lopressor IV 2.5 mg (HIGH ALERT MEDICATION, NOW) (15:59 02/19/2017 EKoroleva P.A.-C) (Ack 16:11 SReitz R.N.) (16:20 SReitz R.N.) ORDER SHEET NOTES: [Electronically signed by Hillary Guadarrama R.N. (17:40 02/19/2017)] [Electronically signed by Jessa Koehler P.A.-C (17:58 02/19/2017)] [Electronically locked/signed by Hillary Guadarrama R.N. (17:40 02/19/2017)]
--- NOTE | 2017-02-19 17:15 | ED NURSING NOTES ---
Clinical Report - Nurses [facility] [address] [place] [address] 02/19/2017 15:40 Patient: FRANCISCO SIMS TRIAGE Triage time 15:46. Acuity: LEVEL 3. Chief Complaint: HEADACHE and DIZZINESS. Alert. No acute distress. ( Pt. states she was seen here last night for high bp. She is here tonight because she had a f/u appt. with her PCP and called the triage nurse to discuss her symptoms and she was instructed to be eval. in the ED.). SEPSIS SCREEN: Sepsis Screen. Negative (no infection suspected/documented). TERESA COMA SCORE: Teresa Coma Scale: 15- eyes open spontaneously (4); best verbal response- oriented x 4 (5); best motor response- obeys commands (6). --15:58 Hillary Guadarrama R.N. 15:46 02/19/17. BP: 181/105. HR: 69. RR: 18. O2 saturation: 100%. Temp: 99.1 F. Pain level now 7/10. --15:58 Hillary Guadarrama R.N. Weight: 61.2 kg stated. Height/Length: 60 inches Per Patient. BMI: 26.4. --15:47 Hillary Guadarrama R.N. Medications Abilify Oral 30mg, HS. Albuterol 90 mcg. BuSpar Oral 15 mg, 3x a day. Flonase Nasal 2 sprays, daily. Imitrex Oral 50 mg, as needed. Percocet 5/325mg prn back pain . Prilosec Oral 20 mg, 2x a day. Topamax Oral 100 mg, 2x a day. Zoloft Oral 100 mg, at bedtime. --15:51 Hillary Guadarrama R.N. Metoprolol 50mg daily . --15:55 Hillary Guadarrama R.N. The following entry was struck by Hillary Guadarrama R.N., 15:55 (02/19/17) Reason - other. <<STRICKEN ENTRY-- Lopressor Oral (Tablet 50 mg), daily. --15:51 Hillary Guadarrama R.N. --END STRIKE>> The following entry was struck by Hillary uGadarrama R.N., 15:54 (02/19/17) Reason - other. <<STRICKEN ENTRY-- Baclofen Oral 10 mg, 3x a day as needed. --15:51 Hillary Guadarrama R.N. --END STRIKE>> The following entry was struck by Hillary Guadarrama R.N., 15:52 (02/19/17) Reason - other. <<STRICKEN ENTRY-- HCTZ 25 mg, daily. --15:51 Hillary Guadarrama R.N. --END STRIKE>>. Allergies Codeine. Vicodin. --15:51 Hillary Guadarrama R.N. History Arrived by private vehicle. Historian: patient. Unaccompanied. Primary physician (Bhavesh). This started today. Treatment ELECTROMECHANICAL TECHNICIAN: None. PAST MEDICAL HX: Immunizations: up-to-date. SOCIAL HX: Light tobacco smoker (cigarette)- less than 1/2 a pack per day. Occasional alcohol use. History of drug use. (hx of marijuana use: pt. states she has not used for x1 month). NUTRITIONAL RISK ASSESSMENT: The nutritional risk assessment revealed no deficiencies. FUNCTIONAL ASSESSMENT: Functional assessment: no impairments noted. LEARNING NEEDS ASSESSMENT: The learning needs assessment revealed no barriers. --15:58 Hillary Guadarrama R.N. PROBLEMS: Dehydration. Diarrhea. Vomiting. Hypokalemia. Rhabdomyolysis. Anxiety Reaction. Hypertensive Headache. Spondylolysis. Cholecystitis. Abd pain . Muscle Strain, Upper Extremity. Depression. Environmental Allergies. Chronic Back Pain. Degenerative Joint Disease. Headache. Gastroesophageal Reflux. Sinus Problems. Chronic Headache. Arthritis. Fibromyalgia. Dental Pain. URI. Hypertension. Back Pain. Migraine Headache. --15:54 Hillary Guadarrama R.N. ADDITIONAL SURGERIES: Back Surgery []. . Inguinal Hernia Repair. Tonsillectomy. Triger finger rt middle finger . Tubal Ligation. --15:58 Hillary Guadarrama R.N. Interventions ID band on patient. Ambulatory. --15:58 Hillary Guadarrama R.N. PHYSICAL ASSESSMENT Ambulatory to room. ( fast exam negative.). GENERAL / NEURO / PSYCH: Alert. Appears in no acute distress. HEENT: No facial asymmetry noted. Mucous membranes are pink. RESPIRATORY: Respirations not labored. CVS: Capillary refill less than 2 seconds. SKIN: Skin intact. Skin is warm and dry. --15:58 Hillary Guadarrama R.N. NURSING PROGRESS NOTES Patient gowned. Head of bed elevated. Two patient identifiers checked. Call light placed in reach. Side rails up x 2. Bed placed in lowest position. Brakes of bed on. Patient ready for evaluation- chart flagged. --15:59 Hillary Guadarrama R.N. grain oilseed or pasture farm worker, pulse oximeter and NIBP monitor placed on patient; benefits specialist recruiter- Lead II; monitor alarms on. --15:59 Hillary Guadarrama R.N. EKG time: (1611). EKG was ordered, performed by a tech and shown to the ED physician. --16:10 Hillary Guadarrama R.N. 16:10 02/19/2017 Site #1 started via IV in the right antecubital space with an 20g angiocath, with aseptic technique and good blood return; one attempt. Blood drawn: rainbow set. Labeled in the presence of the patient and sent to the lab. Saline lock flushed with 10 mL saline. --16:10 Hillary Guadarrama R.N. <<STRICKEN ENTRY-- EKG time: (1611). EKG was ordered, performed by a tech and shown to the ED physician. --16:13 Renetta Galeana, ER Tech1 --END STRIKE>> Correction --16:14 Renetta Galeana, ER Tech1 16:20 02/19/2017 Lopressor (Metoprolol Tartrate) IVP 2.5 mg given over 2 minute(s) via site #1. Allergies verified and confirmed 5 rights. IV patency established. IV site checked: no pain, redness, or swelling. IV flushed thoroughly pre- and post-medication administration. --16:20 Hillary Guadarrama R.N. 16:22 02/19/17. BP: 175/117. HR: 68 (regular and normal rate). RR: 13. O2 saturation: 99%. --16:22 Hillary Guadarrama R.N. Reassessment after medication administered. She has had no adverse reaction. Overall patient status- she states feels better. --16:43 Hillary Guadarrama R.N. 16:42 02/19/17. BP: 172/97. HR: 60. RR: 15. Pain level now 01/11. --16:43 Hillary Guadarrama R.N. 17:06 02/19/17. The patient reports no complaints and she is calm and resting quietly. Overall patient status is improved- she states feels better. --17:06 Denny Rodríguez R.N. 17:06 02/19/17. BP: 158/80. HR: 66. RR: 15. O2 saturation: 97% on room air. Pain level now 01/11. --17:06 Denny Rodríguez R.N. DISPOSITION / DISCHARGE 17:32 02/19/2017 Site #1 removed upon discharge. Catheter intact. Manual pressure and bandaid applied. --17:32 Hillary Guadarrama R.N. 17:30. Departure time: 1730. Condition at departure: stable. No learning barriers present. Discharge instructions provided and reviewed with the patient. Reviewed medication(s) side effects, precautions, dosing and course information. Prescription(s) given to the patient. Reviewed referral to family practice for followup. Patient verbalized understanding. Written instructions provided in Yoruba. The patient was discharged home and unaccompanied at time of discharge. She left the Emergency Department ambulatory and via private vehicle. ( pt. to call [email or web address]). Medication list reviewed and validated. --17:35 Hillary Guadarrama R.N. 17:30 02/19/17. BP: 175/98. HR: 66. RR: 16. O2 saturation: 100%. Temp: 98.2 F. Pain level now 12/11. --17:35 Hillary Guadarrama R.N. 17:30. ( RE bp: pt. provider aware; no new orders recieved. Pt. denies SCHMITT and dizziness at this time.). --17:39 Chiara, Hillary, R.N. Locked/Released at 02/19/2017 17:40 by Hillary Guadarrama R.N.
--- NOTE | 2017-02-19 17:15 | ED ORDER SUMMARY ---
..... Patient: FRANCISCO SIMS OrderSheet [facility] VisitID: [id number] [address] [place] [address] 57y, F Registration Date/Time: 02/19/2017 ORDER SHEET Weight: 61.2 kg (stated) Allergies: Codeine, Vicodin GENERAL ORDERS: EKG - ER Stat (15:58 02/19/2017 EKoroleva P.A.-C) (Ack 16:03 Rubin) (16:11 SReitz R.N.) Pit Inspector (Continuous) (15:59 02/19/2017 EKoroleva P.A.-C) (16:11 SReitz R.N.) MEDICATION ORDERS: IV FLUIDS: IV Saline Lock (15:58 02/19/2017 EKoroleva P.A.-C) (Ack 16:11 SReitz R.N.) Lopressor IV 2.5 mg (HIGH ALERT MEDICATION, NOW) (15:59 02/19/2017 EKoroleva P.A.-C) (Ack 16:11 SReitz R.N.) (16:20 SReitz R.N.) ORDER SHEET NOTES: [Electronically signed by Hillary Guadarrama R.N. (17:40 02/19/2017)] [Electronically signed by Jessa Koehler P.A.-C (17:58 02/19/2017)] [Electronically locked/signed by Hillary Guadarrama R.N. (17:40 02/19/2017)]
--- NOTE | 2017-02-19 17:15 | ED NURSING NOTES ---
Clinical Report - Nurses [facility] [address] [place] [address] 02/19/2017 15:40 Patient: FRANCISCO SIMS TRIAGE Triage time 15:46. Acuity: LEVEL 3. Chief Complaint: HEADACHE and DIZZINESS. Alert. No acute distress. ( Pt. states she was seen here last night for high bp. She is here tonight because she had a f/u appt. with her PCP and called the triage nurse to discuss her symptoms and she was instructed to be eval. in the ED.). SEPSIS SCREEN: Sepsis Screen. Negative (no infection suspected/documented). TERESA COMA SCORE: Teresa Coma Scale: 15- eyes open spontaneously (4); best verbal response- oriented x 4 (5); best motor response- obeys commands (6). --15:58 Hillary Guadarrama R.N. 15:46 02/19/17. BP: 181/105. HR: 69. RR: 18. O2 saturation: 100%. Temp: 99.1 F. Pain level now 7/10. --15:58 Hillary Guadarrama R.N. Weight: 61.2 kg stated. Height/Length: 60 inches Per Patient. BMI: 26.4. --15:47 Hillary Guadarrama R.N. Medications Abilify Oral 30mg, HS. Albuterol 90 mcg. BuSpar Oral 15 mg, 3x a day. Flonase Nasal 2 sprays, daily. Imitrex Oral 50 mg, as needed. Percocet 5/325mg prn back pain . Prilosec Oral 20 mg, 2x a day. Topamax Oral 100 mg, 2x a day. Zoloft Oral 100 mg, at bedtime. --15:51 Hillary Guadarrama R.N. Metoprolol 50mg daily . --15:55 Hillary Guadarrama R.N. The following entry was struck by Hillary Guadarrama R.N., 15:55 (02/19/17) Reason - other. <<STRICKEN ENTRY-- Lopressor Oral (Tablet 50 mg), daily. --15:51 Hillary Guadarrama R.N. --END STRIKE>> The following entry was struck by Hillary Guadarrama R.N., 15:54 (02/19/17) Reason - other. <<STRICKEN ENTRY-- Baclofen Oral 10 mg, 3x a day as needed. --15:51 Hillary Guadarrama R.N. --END STRIKE>> The following entry was struck by Hillary Guadarrama R.N., 15:52 (02/19/17) Reason - other. <<STRICKEN ENTRY-- HCTZ 25 mg, daily. --15:51 Hillary Guadarrama R.N. --END STRIKE>>. Allergies Codeine. Vicodin. --15:51 Hillary Guadarrama R.N. History Arrived by private vehicle. Historian: patient. Unaccompanied. Primary physician (Bhavesh). This started today. Treatment LOAD MANAGER: None. PAST MEDICAL HX: Immunizations: up-to-date. SOCIAL HX: Light tobacco smoker (cigarette)- less than 1/2 a pack per day. Occasional alcohol use. History of drug use. (hx of marijuana use: pt. states she has not used for x1 month). NUTRITIONAL RISK ASSESSMENT: The nutritional risk assessment revealed no deficiencies. FUNCTIONAL ASSESSMENT: Functional assessment: no impairments noted. LEARNING NEEDS ASSESSMENT: The learning needs assessment revealed no barriers. --15:58 Hillary Guadarrama R.N. PROBLEMS: Dehydration. Diarrhea. Vomiting. Hypokalemia. Rhabdomyolysis. Anxiety Reaction. Hypertensive Headache. Spondylolysis. Cholecystitis. Abd pain . Muscle Strain, Upper Extremity. Depression. Environmental Allergies. Chronic Back Pain. Degenerative Joint Disease. Headache. Gastroesophageal Reflux. Sinus Problems. Chronic Headache. Arthritis. Fibromyalgia. Dental Pain. URI. Hypertension. Back Pain. Migraine Headache. --15:54 Hillary Guadarrama R.N. ADDITIONAL SURGERIES: Back Surgery []. . Inguinal Hernia Repair. Tonsillectomy. Triger finger rt middle finger . Tubal Ligation. --15:58 Hillary Guadarrama R.N. Interventions ID band on patient. Ambulatory. --15:58 Hillary Guadarrama R.N. PHYSICAL ASSESSMENT Ambulatory to room. ( fast exam negative.). GENERAL / NEURO / PSYCH: Alert. Appears in no acute distress. HEENT: No facial asymmetry noted. Mucous membranes are pink. RESPIRATORY: Respirations not labored. CVS: Capillary refill less than 2 seconds. SKIN: Skin intact. Skin is warm and dry. --15:58 Hillary Guadarrama R.N. NURSING PROGRESS NOTES Patient gowned. Head of bed elevated. Two patient identifiers checked. Call light placed in reach. Side rails up x 2. Bed placed in lowest position. Brakes of bed on. Patient ready for evaluation- chart flagged. --15:59 Hillary Guadarrama R.N. youth nutritional monitor, pulse oximeter and NIBP monitor placed on patient; youth nutritional monitor- Lead II; monitor alarms on. --15:59 Hillary Guadarrama R.N. EKG time: (1611). EKG was ordered, performed by a tech and shown to the ED physician. --16:10 Hillary Guadarrama R.N. 16:10 02/19/2017 Site #1 started via IV in the right antecubital space with an 20g angiocath, with aseptic technique and good blood return; one attempt. Blood drawn: rainbow set. Labeled in the presence of the patient and sent to the lab. Saline lock flushed with 10 mL saline. --16:10 Hillary Guadarrama R.N. <<STRICKEN ENTRY-- EKG time: (1611). EKG was ordered, performed by a tech and shown to the ED physician. --16:13 Renetta Galeana, ER Tech1 --END STRIKE>> Correction --16:14 Renetta Galeana, ER Tech1 16:20 02/19/2017 Lopressor (Metoprolol Tartrate) IVP 2.5 mg given over 2 minute(s) via site #1. Allergies verified and confirmed 5 rights. IV patency established. IV site checked: no pain, redness, or swelling. IV flushed thoroughly pre- and post-medication administration. --16:20 Hillary Guadarrama R.N. 16:22 02/19/17. BP: 175/117. HR: 68 (regular and normal rate). RR: 13. O2 saturation: 99%. --16:22 Hillary Guadarrama R.N. Reassessment after medication administered. She has had no adverse reaction. Overall patient status- she states feels better. --16:43 Hillary Guadarrama R.N. 16:42 02/19/17. BP: 172/97. HR: 60. RR: 15. Pain level now 01/11. --16:43 Hillary Guadarrama R.N. 17:06 02/19/17. The patient reports no complaints and she is calm and resting quietly. Overall patient status is improved- she states feels better. --17:06 Denny Rodríguez R.N. 17:06 02/19/17. BP: 158/80. HR: 66. RR: 15. O2 saturation: 97% on room air. Pain level now 01/11. --17:06 Denny Rodríguez R.N. DISPOSITION / DISCHARGE 17:32 02/19/2017 Site #1 removed upon discharge. Catheter intact. Manual pressure and bandaid applied. --17:32 Hillary Guadarrama R.N. 17:30. Departure time: 1730. Condition at departure: stable. No learning barriers present. Discharge instructions provided and reviewed with the patient. Reviewed medication(s) side effects, precautions, dosing and course information. Prescription(s) given to the patient. Reviewed referral to family practice for followup. Patient verbalized understanding. Written instructions provided in Lithuanian. The patient was discharged home and unaccompanied at time of discharge. She left the Emergency Department ambulatory and via private vehicle. ( pt. to call [employer]). Medication list reviewed and validated. --17:35 Hillary Guadarrama R.N. 17:30 02/19/17. BP: 175/98. HR: 66. RR: 16. O2 saturation: 100%. Temp: 98.2 F. Pain level now 12/11. --17:35 Hillary Guadarrama R.N. 17:30. ( RE bp: pt. provider aware; no new orders recieved. Pt. denies SCHMITT and dizziness at this time.). --17:39 Chiara, Hillary, R.N. Locked/Released at 02/19/2017 17:40 by Hillary Guadarrama R.N.
--- NOTE | 2017-02-19 17:15 | ED CLINICAL REPORT ---
Clinical Report - Physicians/Mid Levels [facility] [address] [place] [address] 02/19/2017 15:40 Patient: FRANCISCO SIMS Time Seen: 16:10 Feb 19 2017. Arrived- By private vehicle. Historian- patient. HISTORY OF PRESENT ILLNESS Chief Complaint: headache. Is still present. (Patient here in the ER with a headache, reports some chest pain, similar symptoms discussed, her symptoms last night resolved. She has been trying adjust her blood pressure medications, work closely with her primary care provider. She had times takes water pills, however occasionally she does not. Currently taking metoprolol 50 mg once a day. Reports it is common for her to have headache, some palpitations off and on when she has high levels of blood pressure. Discuss symptoms with nurse today, and had an appointment within an hour upon ear check and, in discussion and decision was made to go to the ER.). REVIEW OF SYSTEMS No fever, sinus drainage, cough, difficulty breathing or nausea. No diarrhea or headache. No difficulty with ambulation. All systems otherwise negative, except as recorded above. PHYSICAL EXAM Vital Signs: 02/19/2017 15:46 BP: 181/105. HR: 69. RR: 18. O2 saturation: 100%. Temp: 99.1 F. Appearance: Alert. ENT: Nose normal. Pharynx normal. CVS: Normal heart rate and rhythm. Heart sounds normal. Respiratory: No respiratory distress. Breath sounds normal. Neuro: Oriented X 3. No motor deficit. LABS, X-RAYS, AND EKG EKG: EKG time: (1611). No acute process. No acute ischemia. Normal EKG. Rate: 61. Normal P waves. Normal DOMENICO. Normal QRS complex. Normal axis. Normal ST and T waves and QT. The study has been interpreted contemporaneously. The study has been independently viewed by me. The EKG appears to be a good tracing. PROGRESS AND PROCEDURES Course of Care: Patient had a negative neuro exam, her symptoms self improved in the ER. She has no meningeal signs. No emesis. Suspicion for acute hemorrhage is low at this time. She is to follow up outpatient, for stabilization of her uncontrolled hypertension. She had no chest pain. Respiratory to discharge. 02/19/2017 17:30 BP: 175/98. HR: 66. RR: 16. O2 saturation: 100%. Temp: 98.2 F. 02/19/2017 17:06 BP: 158/80. HR: 66. RR: 15. O2 saturation: 97%. 02/19/2017 16:42 BP: 172/97. HR: 60. RR: 15. Patient is stable. Patient/family counseled. Differential Diagnosis: I considered migraine, cluster headache, vascular malformation, vascular dissection, malignant hypertension, cerebral venous thrombosis, bacterial meningitis, encephalitis, sinusitis, carbon monoxide exposure, trigeminal neuralgia, Thaddeus-Ramos neuralgia and acute angle-closure glaucoma as a possible cause of headache in this patient. This is a partial list of diagnoses considered. Disposition: Discharged. CLINICAL IMPRESSION Uncontrolled hypertension. INSTRUCTIONS (see you DR tomorrow Take 50 mg metoprolol in am and 25 mg in pm, but please make a plan with your DR in next 2-3 days). Warnings: Further evaluation is necessary. Prescription Medications: Metoprolol 25 mg: take 1 orally every day. Dispense ten (10). No refills. Follow-up: Follow up with your doctor in two days. (Electronically signed by Jessa Koehler P.A.-C 02/19/2017 17:58)
--- NOTE | 2017-02-19 17:58 | ED MAR SUMMARY ---
..... Medication Administration Record [facility] [address] [place] [address] Patient: FRANCISCO SIMS Visit ID: [id number] 57y, F Weight: 61.2 kg Height/Length: 60 in BMI: 26.4 ALLERGIES: Codeine, Vicodin Given 16:20 02/19/2017 Hillary Guadarrama RJose M Medication Administered: LOPRESSOR [IVP] (METOPROLOL TARTRATE), Dose: 2.5 mg IVP over 2 minute(s), Site: #1 right AC. Medication Ordered: Lopressor IV 2.5 mg (HIGH ALERT MEDICATION, NOW).
--- NOTE | 2017-02-19 17:58 | ED MED RECONCILIATION SUMMARY ---
Patient: FRANCISCO SIMS Medication Reconciliation Report [facility] VisitID: [id number] [address] [place] [address] 57y, F Registration Date/Time: 02/19/2017 Weight: 61.2 kg Height/Length: 60 in. BMI: 26.4 ALLERGIES: Codeine, Vicodin The patient's Home Medications are listed below: THE FOLLOWING MEDICATIONS NEED TO BE RECONCILED: Abilify Oral 30mg, HS Albuterol 90 mcg BuSpar Oral 15 mg, 3x a day Flonase Nasal 2 sprays, daily Imitrex Oral 50 mg Metoprolol 50mg daily Percocet 5/325mg prn back pain Prilosec Oral 20 mg, 2x a day Topamax Oral 100 mg, 2x a day Zoloft Oral 100 mg, at bedtime The source(s) of the original Home Medication information: Not obtained. The following Medications were given to the patient in the Emergency Department: Lopressor [IVP] IVP 2.5 mg, administered: 02/19/2017 4:20:00 PM The following Medications were prescribed to the patient: Metoprolol 25 mg: take 1 orally every day. Dispense ten (10). No refills. -- Jessa Koehler P.A.-C
--- NOTE | 2017-02-19 17:58 | ED MED RECONCILIATION SUMMARY ---
Patient: FRANCISCO SIMS Medication Reconciliation Report [facility] VisitID: [id number] [address] [place] [address] 57y, F Registration Date/Time: 02/19/2017 Weight: 61.2 kg Height/Length: 60 in. BMI: 26.4 ALLERGIES: Codeine, Vicodin The patient's Home Medications are listed below: THE FOLLOWING MEDICATIONS NEED TO BE RECONCILED: Abilify Oral 30mg, HS Albuterol 90 mcg BuSpar Oral 15 mg, 3x a day Flonase Nasal 2 sprays, daily Imitrex Oral 50 mg Metoprolol 50mg daily Percocet 5/325mg prn back pain Prilosec Oral 20 mg, 2x a day Topamax Oral 100 mg, 2x a day Zoloft Oral 100 mg, at bedtime The source(s) of the original Home Medication information: Not obtained. The following Medications were given to the patient in the Emergency Department: Lopressor [IVP] IVP 2.5 mg, administered: 02/19/2017 4:20:00 PM The following Medications were prescribed to the patient: Metoprolol 25 mg: take 1 orally every day. Dispense ten (10). No refills. -- Jessa Koehler P.A.-C
--- NOTE | 2017-02-19 17:58 | ED MAR SUMMARY ---
..... Medication Administration Record [facility] [address] [place] [address] Patient: FRANCISCO SIMS Visit ID: [id number] 57y, F Weight: 61.2 kg Height/Length: 60 in BMI: 26.4 ALLERGIES: Codeine, Vicodin Given 16:20 02/19/2017 Hillary Guadarrama RJose M Medication Administered: LOPRESSOR [IVP] (METOPROLOL TARTRATE), Dose: 2.5 mg IVP over 2 minute(s), Site: #1 right AC. Medication Ordered: Lopressor IV 2.5 mg (HIGH ALERT MEDICATION, NOW).
--- NOTE | 2017-02-19 17:58 | ED DISCHARGE INSTRUCTIONS ---
Patient: FRANCISCO SIMS General Instructions [facility] VisitID: [id number] [place] [address] 57y, F Registration Date/Time: 02/19/2017 Uncontrolled hypertension. INSTRUCTIONS (see you DR tomorrow Take 50 mg metoprolol in am and 25 mg in pm, but please make a plan with your DR in next 2-3 days). Warnings: Further evaluation is necessary. Prescription Medications: Metoprolol 25 mg: take 1 orally every day. Dispense ten (10). No refills. Follow-up: Follow up with your doctor in two days. ADDITIONAL INFORMATION High Blood Pressure --Established High Blood Pressure (Hypertension) is a chronic disease. The cause is unknown in most cases. It can usually be controlled with lifestyle changes and/or medicines. Symptoms of high blood pressure may include headache, dizziness, visual changes, chest pain and shortness of breath. Sometimes it causes no symptoms at all. However, even if there are no symptoms, untreated high blood pressure increases the risk of heart attack, also known as acute myocardial infarction, or AMI, and stroke. It is a serious health risk and should not be ignored. A normal blood pressure is 120/80 or less. The first (top) number is the "systolic" pressure. The second (bottom) number is the "diastolic" pressure. Hypertension exists when either the top number is 140 or higher, OR the bottom number is 90 or higher on repeated measurements. Home Care: All patients with high blood pressure should do the following to lower their pressure. If you are on medicines, then these methods may reduce or eliminate your need for medicines in the future. Begin a weight loss program if you are overweight. Reduce your salt intake. Avoid high salt foods (olives, pickles, smoked meats, salted potato chips, etc.). Do not add salt to your food at the table. Use only small amounts of salt when cooking. Begin an exercise program. Discuss with your doctor what type of exercise program would be best for you. It doesn't have to be difficult. Even brisk walking for 20 minutes three times a week is a good form of exercise. Avoid medicines which contain heart stimulants. This includes many cold and sinus decongestant pills and sprays as well as diet pills. Check the warnings about hypertension on the label. Stimulants such as amphetamine or cocaine could be lethal for someone with hypertension. Never take these. Limit your caffeine intake or switch to caffeine-free products. Stop smoking. If you are a long-time smoker, this can be hard. Enroll in a stop-smoking program to improve your chance of success. Learning how to handle stress better is an important part of any program to lower blood pressure. Learn about relaxation methods such as meditation, yoga or biofeedback. If medicines were prescribed, take them exactly as directed. Missing doses may cause your blood pressure get out of control. Consider buying an automatic blood pressure machine (available at most pharmacies). Use this to monitor your blood pressure at home and report the results to your doctor. Follow Up: Regular visits to your own physician for blood pressure checks and medicine adjustment is an important part of your care. Make a follow-up appointment as directed by our staff. Get Prompt Medical Attention if any of the following occur: Chest pain or shortness of breath Severe headache Throbbing or rushing sound in the ears Nosebleed Sudden severe abdominal pain Extreme drowsiness, confusion or fainting Dizziness or vertigo (dizziness with spinning sensation) Weakness of an arm or leg or one side of the face Difficulty with speech or vision Hypertension, Out Of Control (Established) Your blood pressure was unusually high today. This can occur as a result of missing doses of your blood pressure medicine. Some asthma inhalers, decongestants, diet pills, and street drugs such as cocaine and amphetamine can worsen hypertension. An increase in body weight, increase in salt intake, smoking, and caffeine are other causes. Emotional upset or acute pain can cause a sudden rapid rise in blood pressure which may return to normal after a period of rest. A normal blood pressure is less than 140/90. The first (top) number is the systolic pressure. The second (bottom) number is the diastolic pressure. Hypertension exists when either the top number is 140 or higher, OR the bottom number is 90 or higher on repeated measurements. Home Care: All patients with high blood pressure should do the following to lower their pressure. If you are on blood pressure medicines, then these methods may reduce or eliminate your need for medicines in the future. Begin a weight-loss program if you are overweight. Reduce your salt intake. Avoid high-salt foods (olives, pickles, smoked meats, salted potato chips, etc.). Do not add salt to your food at the table. Use only small amounts of salt when cooking. Begin an exercise program. Discuss with your doctor what type of exercise program would be best for you. It doesnt have to be difficult. Even brisk walking for 20 minutes3 times a week is a good form of exercise. Avoid medicines which contain heart stimulants. This includes many cold and sinus decongestant pills and sprays as well as diet pills. Check the warnings about hypertension on the label. Stimulants such as amphetamine or cocaine could be lethal for someone with hypertension. Never take these. Limit your caffeine intake or switch to decaf. Stop smoking. If you are a long-time smoker, this can be hard. Enroll in a stop-smoking program to improve your chance of success. Talk to your physician about ways to improve your chance of success. Learning how to handle stress better is an important part of any program to lower blood pressure. Learn about relaxation methods such as meditation, yoga, or biofeedback. If medicines were prescribed, take them exactly as directed. Missing doses may cause your blood pressure to get out of control. Consider buying an automatic blood pressure machine (available at many pharmacies). Use this to monitor your blood pressure and report to your doctor. Follow Up: Regular visits to your own doctor for blood pressure checks and medicine adjustment is an important part of your care. Make a follow-up appointment as directed by our staff. Get Prompt Medical Attention if any of the following occur: Chest, arm, shoulder, neck, or upper back pain Shortness of breath Severe headache Throbbing or rushing sound in the ears Nosebleed Extreme drowsiness, confusion, or fainting Dizziness or vertigo (dizziness with spinning sensation) Weakness of an arm or leg or one side of the face Difficulty with speech or vision You have been given the following additional information: Hypertension, Established Hypertension, Established, Out Of Control (Electronically signed by Jessa Koehler P.A.-C 02/19/2017 17:58)
== END 2017-02-19 17:30 | disposition home or self-care (01) ==
LOC: ED SRH 15:39
DX: I10 Essential (primary) hypertension (principal); Z88.5 Allergy status to narcotic agent

== ENCOUNTER 2017-03-22 13:56 | Outpatient (CLI) | payer OTHER ==
--- NOTE | 2017-03-22 17:00 | DIAGNOSTIC IMAGING REPORT ---
PROCEDURE: MG UNILATERAL DIAG-LT W/CAD INDICATION: Follow-up left breast asymmetry. TECHNIQUE: CC, MLO and true-lateral digital views of left breast. In addition, spot compression CC and MLO views were obtained of the lateral central left breast (region of clinical concern). Finally, high-resolution left breast ultrasound was performed (18 mHz). COMPARISON: Comparison is made to left mammogram and left breast ultrasound petite 18:16) and screening mammogram study (07/16/2016. FINDINGS: MAMMOGRAM: Computer-aided detection applied. Moderately dense parenchymal pattern with dystrophic calcification. There is no evidence of mass or underlying abnormality. BREAST ULTRASOUND: Mild retroareolar ductal ectasia which appears unchanged. No evidence of mass or cyst. IMPRESSION: 1. Negative left mammogram and negative left breast ultrasound. 2. Resume routine screening schedule (July 2017). 3. Findings discussed with the patient. RESULT CODE: 1- Negative. A. A negative report should not delay biopsy if a dominant or clinically suspicious mass is present. 10-15% of cancers are not identified by x-ray. B. A negative report may reinforce clinical impression. C. Adenosis and dense breasts may obscure an underlying neoplasm. D. False positive reports average 6-10%. E.. A yearly screening mammogram is recommended. A reminder letter will be scheduled.
== END 2017-03-22 23:00 ==
LOC: MAM SRH 13:56
DX: N64.89 Other specified disorders of breast (principal)

== ENCOUNTER 2017-04-04 20:51 | Emergency (ER) | payer OTHER ==
--- NOTE | 2017-04-04 22:37 | ED ORDER SUMMARY ---
..... Patient: FRANCISCO SIMS OrderSheet [facility] VisitID: [id number] [address] [place] [address] 57y, F Registration Date/Time: 04/04/2017 ORDER SHEET Weight: 59.8 kg (stated) Allergies: Codeine, Vicodin GENERAL ORDERS: MEDICATION ORDERS: Phenergan IV 25 mg (HIGH ALERT MEDICATION, NOW) (:46 04/04/2017 Claudia ASENCIO) (22:34 DDavis R.N.) IV FLUIDS: Toradol IV 30 mg (NOW) (:46 04/04/2017 Claudia ASENCIO) (22:34 DDavis R.N.) IV NS : initial bolus 1000 mL (1000 mL/hr), then none - (NOW) (:46 04/04/2017 Claudia ASENCIO) (22:34 DDavis R.N.) ORDER SHEET NOTES: [Electronically signed by Yolie Salas R.N. (00:31 04/05/2017)] [Electronically signed by Emilee Rivera MD (08:19 04/08/2017)] [Electronically locked/signed by Yolie Salas R.N. (00:31 04/05/2017)]
--- NOTE | 2017-04-04 22:37 | ED CLINICAL REPORT ---
Clinical Report - Physicians/Mid Levels [facility] [address] [place] [address] 04/04/2017 20:53 Patient: FRANCISCO SIMS Time Seen: 2116. Arrived- By private vehicle. Historian- patient. HISTORY OF PRESENT ILLNESS Chief Complaint: MIGRAINE HEADACHE. Is still present. This started today at about 1500. Onset during rest. It is described as similar to previous headaches and "pain". Located in the frontal region. No neck pain. At its maximum, severity described as moderate. When seen in the E.D., severity described as moderate. Modifying factors: worsened by bright light and noise; relieved by nothing. The patient has had photophobia, nausea and vomiting. No preceding symptoms, blurred vision, numbness or weakness. Similar symptoms previously: Many times. Recent medical care: Not recently seen/assessed. REVIEW OF SYSTEMS No fever, muscle aches, sinus pressure, ear pain or sore throat. No head injury, chest pain, difficulty breathing, cough or abdominal pain. No diarrhea, pain with urination, skin rash, enlarged lymph nodes or back pain. All systems otherwise negative, except as recorded above. PAST HISTORY Problems: Rhabdomyolysis. Anxiety Reaction. Atypical Chest Pain. Hypertensive Headache. Spondylolysis. Cholecystitis. Depression. Environmental Allergies. Chronic Back Pain. Degenerative Joint Disease. Gastroesophageal Reflux. Sinus Problems. Arthritis. Fibromyalgia. Dental Caries. Immunizations. LNMP - Last Normal Menstrual Period. Tetanus Status. Hypertension. Migraine Headache. Additional Surgeries: Back Surgery []. . Inguinal Hernia Repair. Tonsillectomy. Trigger finger release, R 3rd finger. Tubal Ligation. Medications: Abilify Oral 30mg, HS. Albuterol 90 mcg. BuSpar Oral 15 mg, 3x a day. Flonase Nasal 2 sprays, daily. Imitrex Oral 50 mg, as needed. Metoprolol 50mg daily . Percocet 5/325mg prn back pain . Prilosec Oral 20 mg, 2x a day. Topamax Oral 100 mg, 2x a day. Zoloft Oral 100 mg, at bedtime. Allergies: Codeine. Vicodin. SOCIAL HISTORY Smoker- current status unknown. No alcohol use or drug use. ADDITIONAL NOTES The nursing notes have been reviewed. PHYSICAL EXAM Vital Signs: 04/04/2017 21:01 BP: 155/95. HR: 59. RR: 18. O2 saturation: 99%. Temp: 98.5 F. Pain level now: 8/10. Have been reviewed. Appearance: No acute distress. (Pt is mildly drowsy, but answers questions appropriately, and is easily arousable.). Eyes: Pupils equal, round and reactive to light. Eyes normal inspection. ENT: Nose normal. Neck: Normal inspection. CVS: Normal heart rate and rhythm. Heart sounds normal. Pulses normal. Respiratory: No respiratory distress. Breath sounds normal. Abdomen: Soft and nontender. Back: Normal inspection. Skin: Skin warm and dry. Normal skin color. No rash. Normal skin turgor. Extremities: Extremities exhibit normal ROM. No lower extremity edema. Neuro: Oriented X 3. Mood/affect normal. Speech normal. Cranial nerves normal (as tested). No cerebellar findings. No motor deficit. No sensory deficit. (Pt is alert when aroused.). LABS, X-RAYS, AND EKG Pulse Oximetry: 04/04/2017 21:01 O2 saturation: 99%. (FIO2 - room air). Interpretation: normal. PROGRESS AND PROCEDURES Course of Care: Patient was treated symptomatically with IV fluids Toradol and Phenergan, after which she was found to be feeling better. No emergent condition identified. Patient counseled in person regarding the patient's stable condition, diagnosis and need for follow-up. Concerns were addressed. Old medical records reviewed. Disposition: Discharged. Condition: stable and improved. CLINICAL IMPRESSION Acute recurrent migraine headache without aura. INSTRUCTIONS Warnings: SEDATIVE MEDICATION: You were given sedative medication during your visit. Do not drive or operate dangerous machinery for 6 hours. GENERAL WARNINGS: Return or contact your physician immediately if your condition worsens or changes unexpectedly, if not improving as expected, or if other problems arise. Your Current Medications: CONTINUE TAKING THE FOLLOWING MEDICATIONS: Abilify Oral : 30mg HS. Albuterol : 90 mcg. BuSpar Oral : 15 mg 3x a day. Flonase Nasal : 2 sprays daily. Imitrex Oral : 50 mg, prn. Metoprolol 50mg daily *. Percocet 5/325mg prn back pain *. Prilosec Oral : 20 mg 2x a day. Topamax Oral : 100 mg 2x a day. Zoloft Oral : 100 mg at bedtime. Prescription Medications: Promethazine 25 mg suppositories: insert 1 suppository into the rectum every 4 hours as needed for nausea. Dispense twelve (12). No refill. Follow-up: Follow up with your doctor in three days if not better. Understanding of the discharge instructions verbalized by patient. (Electronically signed by Emilee Rivera MD 04/08/2017 8:19)
--- NOTE | 2017-04-04 22:37 | ED NURSING NOTES ---
Clinical Report - Nurses [facility] [address] [place] [address] 04/04/2017 20:53 Patient: FRANCISCO SIMS TRIAGE Triage time 21:01. Acuity: LEVEL 3. Chief Complaint: NAUSEA and VOMITING. --21:07 Yolie Salas R.N. 21:01 04/04/17. BP: 155/95 taken on the left arm, while lying. HR: 59 (regular and normal rate). RR: 18 (regular). O2 saturation: 99% on room air. Temp: 98.5 F (oral). Pain level now: 07/11. --21:07 Yolie Salas R.N. Weight: 59.8 kg stated. Height/Length: 64 inches Per Patient. BMI: 22.6. --21:04 Yolie Salas R.N. Medications Abilify Oral 30mg, HS. Albuterol 90 mcg. BuSpar Oral 15 mg, 3x a day. Flonase Nasal 2 sprays, daily. Imitrex Oral 50 mg, as needed. Metoprolol 50mg daily . Percocet 5/325mg prn back pain . Prilosec Oral 20 mg, 2x a day. Topamax Oral 100 mg, 2x a day. Zoloft Oral 100 mg, at bedtime. --21:04 Yolie Salas R.N. Allergies Codeine. Vicodin. --21:04 Yolie Salas R.N. History Arrived by private vehicle. Historian: patient. Accompanied by friend. Primary physician (leann). This started today. Onset was abrupt. Symptoms still present (at about 1500). ( reports having a Migraine as well, with light sensitivity). She has had nausea. PAST MEDICAL HX: Immunizations: up-to-date. SOCIAL HX: Light tobacco smoker (cigarette)- less than 1/2 a pack per day. No alcohol use or drug use. SELF HARM ASSESSMENT: A self harm assessment was performed. The patient answered "no" to the question "Have you recently felt down, depressed, or hopeless?", "Have you noticed less interest or pleasure in doing things?", "Do you have thoughts of harming or killing yourself?", "Are you here because you tried to hurt yourself?", "Have you ever tried to hurt yourself before today?", "Have you recently had thoughts about harming or killing others?" and "Do you have any dangerous items in your possession?". --21:07 Yolie Salas R.N. PROBLEMS: Dehydration. Diarrhea. Vomiting. Hypokalemia. Stress. Rhabdomyolysis. Anxiety Reaction. Atypical Chest Pain. Acute Pain. Hypertensive Headache. Spondylolysis. Cholecystitis. Abd pain . Muscle Strain, Upper Extremity. Depression. Environmental Allergies. Chronic Back Pain. Degenerative Joint Disease. Gastroesophageal Reflux. Sinus Problems. Arthritis. Fibromyalgia. Dental Pain. Dental Caries. Immunizations. LNMP - Last Normal Menstrual Period. URI. Tetanus Status. Hypertension. Migraine Headache. --21:05 Yolie Salas R.N. The following entry was modified by Emilee Rivera MD, 21:26 Reason - duplicate <<STRICKEN ENTRY-- Headache. --21:19 Emilee Rivera MD --END STRIKE>> The following entry was modified by Emilee Rivera MD, 21:26 Reason - not a chronic medical problem <<STRICKEN ENTRY-- Normal Exam. --03:49 Emilee Rivera MD --END STRIKE>> The following entry was modified by Emilee Rivera MD, 21:26 Reason - duplicate <<STRICKEN ENTRY-- Chronic Headache. --20:34 Emilee Rivera MD --END STRIKE>> The following entry was modified by Emilee Rivera MD, 21:26 Reason - duplicate <<STRICKEN ENTRY-- Back Pain. --20:31 Emilee Rivera MD --END STRIKE>>. ADDITIONAL SURGERIES: Back Surgery []. . Inguinal Hernia Repair. Tonsillectomy. Tubal Ligation. --21:05 Yolie Salas R.N. The following entry was struck by Emilee Rivera MD, 21:26 Reason - misspelled <<STRICKEN ENTRY-- Triger finger rt middle finger . --21:25 Emilee Rivera MD --END STRIKE>>. Interventions ID band on patient. --21: Yolie Salas R.N. PHYSICAL ASSESSMENT Ambulatory to room. GENERAL / NEURO / PSYCH: Alert. Oriented X 4. Appears in pain. HEENT: Mucous membranes are pink. RESPIRATORY: Respirations not labored. Breath sounds within normal limits. CVS: Normal sinus rhythm noted. Capillary refill less than 2 seconds. GI / : The patient has had nausea. Emesis noted. Has vomited several times. Abdomen soft and nontender. Bowel sounds within normal limits. SKIN: Skin is warm and dry. --21: Yolie Salas R.N. Ambulatory to room. HEENT: No facial asymmetry noted. Pupils equal, round and reactive to light. --21: Yolie Salas R.N. NURSING PROGRESS NOTES Patient gowned. Two patient identifiers checked. Call light placed in reach. Side rails up x 2. Bed placed in lowest position. Brakes of bed on. --21: Yolie Salas R.N. Patient ready for evaluation- chart flagged. --21: Yolie Salas R.N. 21:10 04/04/2017 Site #1 started via IV in the left antecubital space with an 20g angiocath, with aseptic technique and good blood return; one attempt. Blood drawn: rainbow set. Labeled in the presence of the patient and sent to the lab. Saline lock flushed with 10 mL saline. --21:10 Yolie Salas R.N. 22:24 04/04/2017 Started bag #1 1000 mL IV Fluids IV NS (Saline); at 1000 mL/hr over 1 hour(s) via site #1. Allergies verified and confirmed 5 rights. IV patency established site checked: no pain, redness, or swelling flushed thoroughly pre- and post-medication administration. Completed per protocol. --22:34 Aaron Chaidez R.N. 22:29 04/04/2017 Toradol IVP 30 mg given over 2 minute(s) via site #1. Allergies verified and confirmed 5 rights. IV patency established. IV site checked: no pain, redness, or swelling. IV flushed thoroughly pre- and post-medication administration. IVP given by RN. --22:34 Aaron Chaidez R.N. 22:31 04/04/2017 PHENERGAN (Promethazine HCl) IVP 25 mg given over 2 minute(s) via site #1. Allergies verified and confirmed 5 rights. IV patency established. IV site checked: no pain, redness, or swelling. IV flushed thoroughly pre- and post-medication administration. IVP given by RN. --22:34 Aaron Chaidez R.N. DISPOSITION / DISCHARGE 00:24 04/05/2017 Site #1 removed upon discharge. Catheter intact. Manual pressure and bandage applied. --00:28 Yolie Salas R.N. 00:27 04/05/17. BP: 112/72 taken on the right arm, while lying. HR: 69 (regular and normal rate). RR: 18 (regular, unlabored and normal). O2 saturation: 96% on room air. Temp: deferred. Pain level now: 12/11. --00:30 Yolie Salas R.N. Departure time: 0024. Condition at departure: improved and stable. No learning barriers present. Discharge instructions provided and reviewed with the patient. Reviewed medication(s) side effects, precautions, dosing and course information. Prescription(s) given to the patient. Patient verbalized understanding. Written instructions provided in Polish. The patient was discharged home. She left the Emergency Department ambulatory and via (help link for ride). Driving (help link for ride). --00:30 Yolie Salas R.N. 00:24 04/05/2017 IV Fluids IV NS Discontinued: bag #1 completed upon discharge. Total amount infused: 1000 mL. IV patency established. IV site checked: no pain, redness, or swelling. IV flushed thoroughly. --00:31 Yolie Salas R.N. Locked/Released at 04/05/2017 0:31 by Yolie Salas R.N.
--- NOTE | 2017-04-04 22:37 | ED ORDER SUMMARY ---
..... Patient: FRANCISCO SIMS OrderSheet [facility] VisitID: [id number] [address] [place] [address] 57y, F Registration Date/Time: 04/04/2017 ORDER SHEET Weight: 59.8 kg (stated) Allergies: Codeine, Vicodin GENERAL ORDERS: MEDICATION ORDERS: Phenergan IV 25 mg (HIGH ALERT MEDICATION, NOW) (:46 04/04/2017 Claudia ASENCIO) (22:34 DDavis R.N.) IV FLUIDS: Toradol IV 30 mg (NOW) (:46 04/04/2017 Claudia ASENCIO) (22:34 DDavis R.N.) IV NS : initial bolus 1000 mL (1000 mL/hr), then none - (NOW) (:46 04/04/2017 Claudia ASENCIO) (22:34 DDavis R.N.) ORDER SHEET NOTES: [Electronically signed by Yolie Salas R.N. (00:31 04/05/2017)] [Electronically signed by Emilee Rivera MD (08:19 04/08/2017)] [Electronically locked/signed by Yolie Salas R.N. (00:31 04/05/2017)]
--- NOTE | 2017-04-08 08:19 | ED MAR SUMMARY ---
..... Medication Administration Record [facility] [address] [place] [address] Patient: FRANCISCO SIMS Visit ID: [id number] 57y, F Weight: 59.8 kg Height/Length: 64 in BMI: 22.6 ALLERGIES: Codeine, Vicodin Start 22:24 04/04/2017 Aaron Chaidez R.N., Stop 00:24 04/05/2017 Yolie Salas R.N. Medication Administered: IV NS (SALINE), Dose: IV Fluids over 1 hour(s), Rate: 1000 mL/hr, Dispensed: 1000 mL bag, Site: #1 left AC. Medication Ordered: IV NS : initial bolus 1000 mL (1000 mL/hr), then none - (NOW). Given 22:29 04/04/2017 Aaron Chaidez R.N. Medication Administered: TORADOL [IVP], Dose: 30 mg IVP over 2 minute(s), Site: #1 left AC. Medication Ordered: Toradol IV 30 mg (NOW). Given 22:31 04/04/2017 Aaron Chaidez R.N. Medication Administered: PHENERGAN [IVP] (PROMETHAZINE HCL), Dose: 25 mg IVP over 2 minute(s), Site: #1 left AC. Medication Ordered: Phenergan IV 25 mg (HIGH ALERT MEDICATION, NOW).
--- NOTE | 2017-04-08 08:19 | ED MAR SUMMARY ---
..... Medication Administration Record [facility] [address] [place] [address] Patient: FRANCISCO SIMS Visit ID: [id number] 57y, F Weight: 59.8 kg Height/Length: 64 in BMI: 22.6 ALLERGIES: Codeine, Vicodin Start 22:24 04/04/2017 Aaron Chaidez R.N., Stop 00:24 04/05/2017 Yolie Salas R.N. Medication Administered: IV NS (SALINE), Dose: IV Fluids over 1 hour(s), Rate: 1000 mL/hr, Dispensed: 1000 mL bag, Site: #1 left AC. Medication Ordered: IV NS : initial bolus 1000 mL (1000 mL/hr), then none - (NOW). Given 22:29 04/04/2017 Aaron Chaidez R.N. Medication Administered: TORADOL [IVP], Dose: 30 mg IVP over 2 minute(s), Site: #1 left AC. Medication Ordered: Toradol IV 30 mg (NOW). Given 22:31 04/04/2017 Aaron Chaidez R.N. Medication Administered: PHENERGAN [IVP] (PROMETHAZINE HCL), Dose: 25 mg IVP over 2 minute(s), Site: #1 left AC. Medication Ordered: Phenergan IV 25 mg (HIGH ALERT MEDICATION, NOW).
--- NOTE | 2017-04-08 08:19 | ED MED RECONCILIATION SUMMARY ---
Patient: FRANCISCO SIMS Medication Reconciliation Report [facility] VisitID: [id number] [address] [place] [address] 57y, F Registration Date/Time: 04/04/2017 Weight: 59.8 kg Height/Length: 64 in. BMI: 22.6 ALLERGIES: Codeine, Vicodin The patient's Home Medications are listed below: CONTINUE TAKING THE FOLLOWING MEDICATIONS: Abilify Oral 30mg, HS Albuterol 90 mcg BuSpar Oral 15 mg, 3x a day Flonase Nasal 2 sprays, daily Imitrex Oral 50 mg Metoprolol 50mg daily Percocet 5/325mg prn back pain Prilosec Oral 20 mg, 2x a day Topamax Oral 100 mg, 2x a day Zoloft Oral 100 mg, at bedtime The source(s) of the original Home Medication information: Not obtained. The following Medications were given to the patient in the Emergency Department: IV NS IV Fluids bolus 0, then 1000 mL/hr, administered: 04/04/2017 10:24:00 PM Toradol [IVP] IVP 30 mg, administered: 04/04/2017 10:29:00 PM PHENERGAN [IVP] IVP 25 mg, administered: 04/04/2017 10:31:00 PM The following Medications were prescribed to the patient: Promethazine 25 mg suppositories: insert 1 suppository into the rectum every 4 hours as needed for nausea. Dispense twelve (12). No refill. -- Emilee Rivera MD
--- NOTE | 2017-04-08 08:19 | ED MED RECONCILIATION SUMMARY ---
Patient: FRANCISCO SIMS Medication Reconciliation Report [facility] VisitID: [id number] [address] [place] [address] 57y, F Registration Date/Time: 04/04/2017 Weight: 59.8 kg Height/Length: 64 in. BMI: 22.6 ALLERGIES: Codeine, Vicodin The patient's Home Medications are listed below: CONTINUE TAKING THE FOLLOWING MEDICATIONS: Abilify Oral 30mg, HS Albuterol 90 mcg BuSpar Oral 15 mg, 3x a day Flonase Nasal 2 sprays, daily Imitrex Oral 50 mg Metoprolol 50mg daily Percocet 5/325mg prn back pain Prilosec Oral 20 mg, 2x a day Topamax Oral 100 mg, 2x a day Zoloft Oral 100 mg, at bedtime The source(s) of the original Home Medication information: Not obtained. The following Medications were given to the patient in the Emergency Department: IV NS IV Fluids bolus 0, then 1000 mL/hr, administered: 04/04/2017 10:24:00 PM Toradol [IVP] IVP 30 mg, administered: 04/04/2017 10:29:00 PM PHENERGAN [IVP] IVP 25 mg, administered: 04/04/2017 10:31:00 PM The following Medications were prescribed to the patient: Promethazine 25 mg suppositories: insert 1 suppository into the rectum every 4 hours as needed for nausea. Dispense twelve (12). No refill. -- Emilee Rivera MD
--- NOTE | 2017-04-08 08:19 | ED DISCHARGE INSTRUCTIONS ---
Patient: FRANCISCO SIMS General Instructions [facility] VisitID: [id number] [place] [address] 57y, F Registration Date/Time: 04/04/2017 Acute recurrent migraine headache without aura. INSTRUCTIONS Warnings: SEDATIVE MEDICATION: You were given sedative medication during your visit. Do not drive or operate dangerous machinery for 6 hours. GENERAL WARNINGS: Return or contact your physician immediately if your condition worsens or changes unexpectedly, if not improving as expected, or if other problems arise. Your Current Medications: CONTINUE TAKING THE FOLLOWING MEDICATIONS: Abilify Oral : 30mg HS. Albuterol : 90 mcg. BuSpar Oral : 15 mg 3x a day. Flonase Nasal : 2 sprays daily. Imitrex Oral : 50 mg, prn. Metoprolol 50mg daily *. Percocet 5/325mg prn back pain *. Prilosec Oral : 20 mg 2x a day. Topamax Oral : 100 mg 2x a day. Zoloft Oral : 100 mg at bedtime. Prescription Medications: Promethazine 25 mg suppositories: insert 1 suppository into the rectum every 4 hours as needed for nausea. Dispense twelve (12). No refill. Follow-up: Follow up with your doctor in three days if not better. Understanding of the discharge instructions verbalized by patient. ADDITIONAL INFORMATION Migraine Headache Migraine headaches are related to changes in blood flow to the brain. This causes throbbing or constant pain on one or both sides of the head. The pain may last from a few hours to several days. There is usually nausea, vomiting, sensitivity to light and sound, and blurred vision. A migraine attack may be triggered by emotional stress, hormone changes during the menstrual cycle, oral contraceptives, alcohol use, certain foods containing tyramine, eye strain, weather changes, missing meals, or too little or too much sleep. Home Care For This Headache: 1) If you were given pain medicine for this headache, do not drive yourself home . Arrange for a ride, instead. When you get home, try to sleep. You should feel much better when you wake up. 2) Migraine headaches may improve with an ice pack on the forehead or at the base of the skull. Heat to the back of your neck may relieve any neck spasm. 3) Drink only clear liquids or eat a very light diet to avoid nausea/vomiting until symptoms improve. Preventing Future Headaches: 1) Pay attention to those factors that seem to trigger your headache. Try to avoid them when you can. If you have frequent headaches, it is useful to keep a diary of what you were doing, feeling or eating in the hours before each attack. Show this to your doctor to help find the cause of your headaches. a) If you feel that stress is a factor in your headaches, look at the sources of stress in your life. Find ways to release the build-up of those stresses by using regular exercise, relaxation methods (yoga, meditation), bio-feedback or simply taking time-out for yourself. For more information about this, consult your doctor or go to a local bookstore and review books and tapes on this subject. b) Tyramine is a substance present in the following foods : chocolate, yogurt, all cheeses except cottage cheese and cream cheese. smoked or pickled fish and meat (including guerrero, caviar, bologna, pepperoni, salami), liver, avocados, bananas, figs, raisins, and red wine. Be aware that these foods may trigger a migraine in some persons. Try taking these foods out of your diet for 1-2 months to see if this reduces headache frequency. Treating Future Attacks: 1) At the first sign of a headache, take time out if possible. Find a quiet, dark, comfortable place to sit or lie down. Let yourself relax or sleep. 2) An ice pack on the forehead or area of greatest pain may help. If you are having muscle spasm and tightness of the neck, a heating pad and massage to this area may be helpful. 3) If you have been prescribed a medicine to stop a migraine headache, use this at the very first warning sign of the headache (aura or initial pain) for best results. Follow Up with your doctor if the headache is not better within the next 24 hours. If you have frequent headaches you should discuss a treatment plan with your primary care doctor. Ask if you can have medicine to take at home the next time you get a bad headache. Poorly controlled chronic headaches may require a referral to a neurologist (headache specialist). Get Prompt Medical Attention if any of the following occur: Your head pain gets worse, or does not improve within 24 hours Repeated vomiting (cant keep liquids down) Sinus or ear or throat pain (not already reported) Fever of 100.4 F (38 C) or higher, or as directed by your healthcare provider Stiff neck Extreme drowsiness, confusion or fainting Dizziness, vertigo (dizziness with spinning sensation) Weakness of an arm or leg or one side of the face Difficulty with speech or vision You have been given the following additional information: Headache, Migraine (Classical) (Electronically signed by Emilee Rivera MD 04/08/2017 8:19)
== END 2017-04-05 00:24 | disposition home or self-care (01) ==
LOC: ED SRH 20:51
DX: G43.909 Migraine, unspecified, not intractable, without status migrainosus (principal); I10 Essential (primary) hypertension; Z79.899 Other long term (current) drug therapy; Z79.51 Long term (current) use of inhaled steroids; Z88.5 Allergy status to narcotic agent

== ENCOUNTER 2017-04-10 14:39 | Outpatient (CLI) | payer OTHER ==
--- NOTE | 2017-04-10 15:03 | DIAGNOSTIC IMAGING REPORT ---
PROCEDURE: XR FOOT 3 VIEWS - RIGHT INDICATION: R FOOT PX TECHNIQUE: Three views. COMPARISON: None. FINDINGS: Osseous structures and joint spaces are normal. No fracture or dislocation. IMPRESSION: 1. Normal right foot.
== END 2017-04-10 23:00 ==
LOC: XR SRH 14:39
DX: M79.671 Pain in right foot (principal)

== ENCOUNTER 2017-05-09 10:41 | Emergency (ER) | payer OTHER ==
--- NOTE | 2017-05-09 11:58 | ED NURSING NOTES ---
Clinical Report - Nurses [facility] [address] [place] [address] 05/09/2017 10:43 Patient: FRANCISCO SIMS TRIAGE Triage time 11:May 09 2017. Acuity: LEVEL 4. Chief Complaint: SKIN RASH. SEPSIS SCREEN: Sepsis Screen. Negative (no infection suspected/documented). LESLIE COMA SCORE: [place] Coma Scale: 15- eyes open spontaneously (4); best verbal response- oriented x 4 (5); best motor response- obeys commands (6). --11:18 Promise Gomez R.N. 11:10 05/09/17. BP: 154/108. HR: 72. RR: 16. O2 saturation: 100%. Temp: 99 F. Pain level now: 05/11. --11:18 Promise Gomez R.N. Weight: 62.1 kg stated. Height/Length: 60 inches Per Patient. BMI: 26.7. --11:15 Promise Gomez R.N. Medications Abilify Oral 30mg, HS. Albuterol 90 mcg. BuSpar Oral 15 mg, 3x a day. Flonase Nasal 2 sprays, daily. Imitrex Oral 50 mg, as needed. Metoprolol 50mg daily . Percocet 5/325mg prn back pain . --11:11 Promise Gomez R.N. Prilosec Oral 20 mg, 2x a day. Topamax Oral 100 mg, 2x a day. Zoloft Oral 100 mg, at bedtime. --11:11 Promise Gomez R.N. Tramadol HCL Oral (Tablet 50 mg) 2 tablets, 2x a day. --11:12 Promise Gomez R.N. Baclofen Oral (Tablet 10 mg) 1 tablet, 3x a day. --11:13 Promise Gomez R.N. Ibuprofen Oral (Tablet 800 mg) 1 tablet, 3x a day. --11:13 Promise Gomez R.N. Hydrochlorothiazide Oral (Tablet 25 mg) 1 tablet, 2x a day. --11:17 Promise Gomez R.N. Allergies Codeine. Vicodin. --11:11 Promise Gomez R.N. History Arrived by private vehicle. Historian: patient. Reported as located on the right leg. This started yesterday. It is described as itchy, burning and painful. 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 PAST MEDICAL HX: Immunizations: up-to-date. The patient is post-menopausal. SOCIAL HX: Current every day light tobacco smoker (cigarette)- less than 1/2 a pack per day. Occasional alcohol use. No drug use. No infectious disease exposure. SELF HARM ASSESSMENT: A self harm assessment was performed. The patient answered "no" to the question "Do you have thoughts of harming or killing yourself?". FALL RISK ASSESSMENT: Fall risk assessment completed. No fall risk identified. NUTRITIONAL RISK ASSESSMENT: The nutritional risk assessment revealed no deficiencies. FUNCTIONAL ASSESSMENT: Functional assessment: no impairments noted. LEARNING NEEDS ASSESSMENT: The learning needs assessment revealed no barriers. ABUSE ASSESSMENT: Abuse assessment: The patient was asked "Do you feel safe in your home?". SKIN INTEGRITY ASSESSMENT: Skin integrity risk assessment completed. No skin integrity risk identified. --11:18 Promise Gomez R.N. PROBLEMS: Dehydration. Diarrhea. Vomiting. Hypokalemia. Stress. Rhabdomyolysis. Anxiety Reaction. Atypical Chest Pain. Acute Pain. Hypertensive Headache. Spondylolysis. Cholecystitis. Abd pain . Muscle Strain, Upper Extremity. Depression. Environmental Allergies. Chronic Back Pain. Degenerative Joint Disease. Gastroesophageal Reflux. Sinus Problems. Fibromyalgia. Arthritis. Dental Pain. Dental Caries. Immunizations. LNMP - Last Normal Menstrual Period. URI. Tetanus Status. Hypertension. Migraine Headache. --11:14 Promise Gomez R.N. ADDITIONAL SURGERIES: Back Surgery []. . Inguinal Hernia Repair. Tonsillectomy. Trigger finger release, R 3rd finger. Tubal Ligation. --11:14 Promise Gomez R.N. Interventions ID band on patient. To room. --11:18 Promise Gomez R.N. PHYSICAL ASSESSMENT GENERAL / NEURO / PSYCH: Alert. The patient does not appear to be in acute distress. Oriented X 4. HEENT: Mucous membranes are pink. RESPIRATORY: Respirations not labored. CVS: Capillary refill less than 2 seconds. GI / : Abdomen nontender. SKIN: Skin is warm and dry. Tender skin rash on the right leg. --11:20 Promise Gomez R.N. NURSING PROGRESS NOTES Patient gowned. Head of bed elevated. Patient identifiers checked. Call light placed in reach. Side rails up x 1. Bed placed in lowest position. Brakes of bed on. --11:20 Promise Gomez R.N. DISPOSITION / DISCHARGE Departure time: 12:18 May 09 2017. Condition at departure: unchanged. No learning barriers present. Discharge instructions provided and reviewed with the patient. Reviewed medication(s) side effects, precautions, dosing and course information. Prescription(s) given to the patient. Reviewed referral to a primary care physician for followup. Patient verbalized understanding. Written instructions provided in Sets[place]. The patient was discharged home. She left the Emergency Department ambulatory and via bus. Driving (bus). FALL RISK ASSESSMENT: Fall risk assessment completed. No fall risk identified. --12:18 Promise Gomez R.N. 12:15 05/09/17. BP: 179/103. HR: 67. RR: 16. O2 saturation: 100%. Pain level now: 05/11. --12:18 Promise Gomez R.N. Locked/Released at 05/09/2017 12:40 by Promise Gomez R.N.
--- NOTE | 2017-05-09 11:58 | ED CLINICAL REPORT ---
Clinical Report - Physicians/Mid Levels [facility] [address] [place] [address] 05/09/2017 10:43 Patient: FRANCISCO SIMS Time Seen: 11:38 Daniel 08 2016. Arrived- By private vehicle. Historian- patient. CPT: ER phys charges level 3 (#[id number]). HISTORY OF PRESENT ILLNESS Chief Complaint: SKIN RASH. This started yesterday Reported as located on the right leg. This started yesterday. It is described as itchy, burning and painful. and is still present. It is described as itchy and painful. It has been located on the right lower extremity. No cause has been identified. Similar symptoms previously: None. Recent medical care: Not recently seen/assessed. REVIEW OF SYSTEMS No fever, chills, sore throat, cough or difficulty breathing. No hoarseness, lump in throat, enlarged lymph nodes, chest pain or abdominal pain. No nausea, diarrhea, difficulty with urination or joint pain. All systems otherwise negative, except as recorded above. PAST HISTORY Dehydration. Diarrhea. Vomiting. Hypokalemia. Stress. Rhabdomyolysis. Anxiety Reaction. Atypical Chest Pain. Acute Pain. Hypertensive Headache. Spondylolysis. Cholecystitis. Abd pain . Muscle Strain, Upper Extremity. Depression. Environmental Allergies. Chronic Back Pain. Degenerative Joint Disease. Gastroesophageal Reflux. Sinus Problems. Fibromyalgia. Arthritis. Dental Pain. Dental Caries. Immunizations. LNMP - Last Normal Menstrual Period. URI. Tetanus Status. Hypertension. Migraine Headache. --11:14 Promise Gomez R.N. ADDITIONAL SURGERIES: Back Surgery []. . Inguinal Hernia Repair. Tonsillectomy. Trigger finger release, R 3rd finger. Tubal Ligation. Medications: Hydrochlorothiazide Oral (Tablet 25 mg) 1 tablet, 2x a day. Ibuprofen Oral (Tablet 800 mg) 1 tablet, 3x a day. Baclofen Oral (Tablet 10 mg) 1 tablet, 3x a day. Tramadol HCL Oral (Tablet 50 mg) 2 tablets, 2x a day. Prilosec Oral 20 mg, 2x a day. Topamax Oral 100 mg, 2x a day. Zoloft Oral 100 mg, at bedtime. Abilify Oral 30mg, HS. Albuterol 90 mcg. BuSpar Oral 15 mg, 3x a day. Flonase Nasal 2 sprays, daily. Imitrex Oral 50 mg, as needed. Metoprolol 50mg daily . Percocet 5/325mg prn back pain . Allergies: Codeine. Vicodin. SOCIAL HISTORY Heavy tobacco smoker (cigarette)- less than 1 pack per day. Occasional alcohol use. No drug use. ADDITIONAL NOTES The nursing notes have been reviewed. PHYSICAL EXAM Vital Signs: 05/09/2017 11:10 BP: 154/108. HR: 72. RR: 16. O2 saturation: 100%. Temp: 99 F. Pain level now: 05/11. Appearance: Alert. No acute distress. Eyes: Pupils equal, round and reactive to light. Conjunctivae and eyelids normal. ENT: Pharynx normal. Neck: Neck supple. CVS: Normal heart rate and rhythm. Heart sounds normal. Respiratory: No respiratory distress. Breath sounds normal. Chest nontender. No wheezes. Abdomen: Nontender. Skin: The rash is erythematous. No warmth, lymphangitis, induration or thickening. There is tenderness. (rash does not marcelina.). Extremities: (Multiple bruises on both lower legs. (states bumped into things. )). Neuro: Oriented X 3. No motor deficit. No sensory deficit. PROGRESS AND PROCEDURES Patient/family counseled. Disposition: Discharged. Condition: stable. CLINICAL IMPRESSION Moderate allergic and irritative contact dermatitis from detergents (right leg, mildly on left ankle). INSTRUCTIONS Warnings: Further evaluation is necessary. GENERAL WARNINGS: Return or contact your physician immediately if your condition worsens or changes unexpectedly, if not improving as expected, or if other problems arise. Your Current Medications: CONTINUE TAKING THE FOLLOWING MEDICATIONS: Abilify Oral : 30mg HS. Albuterol : 90 mcg. Baclofen Oral : Tablet 10 mg, 1 tablet 3x a day. BuSpar Oral : 15 mg 3x a day. Flonase Nasal : 2 sprays daily. Hydrochlorothiazide Oral : Tablet 25 mg, 1 tablet 2x a day. Ibuprofen Oral : Tablet 800 mg, 1 tablet 3x a day. Imitrex Oral : 50 mg, prn. Metoprolol 50mg daily *. Percocet 5/325mg prn back pain *. Prilosec Oral : 20 mg 2x a day. Topamax Oral : 100 mg 2x a day. Tramadol HCL Oral : Tablet 50 mg, 2 tablets 2x a day. Zoloft Oral : 100 mg at bedtime. Prescription Medications: Hydrocortisone 2.5% cream: apply to affected areas three times daily as needed for itching or rash, until symptoms improve. Dispense thirty (30) grams. No refills. Substitution is permissible. OTC Medications: Benadryl (available over the counter): take according to label instructions. Follow-up: Follow up with your doctor in five days if not better. Understanding of the discharge instructions verbalized by patient. (Electronically signed by Garo Jiang MD 05/09/2017 21:52)
--- NOTE | 2017-05-09 21:53 | ED MAR SUMMARY ---
..... Medication Administration Record [facility] [address] [place], [place] [id number] Patient: FRANCISCO SIMS Visit ID: [id number] 57y, F Weight: 62.1 kg Height/Length: 60 in BMI: 26.7 ALLERGIES: Codeine, Vicodin
--- NOTE | 2017-05-09 21:53 | ED MED RECONCILIATION SUMMARY ---
Patient: FRANCISCO SIMS Medication Reconciliation Report [facility] VisitID: [id number] [address] [place] [address] 57y, F Registration Date/Time: 05/09/2017 Weight: 62.1 kg Height/Length: 60 in. BMI: 26.7 ALLERGIES: Codeine, Vicodin The patient's Home Medications are listed below: CONTINUE TAKING THE FOLLOWING MEDICATIONS: Abilify Oral 30mg, HS Albuterol 90 mcg Baclofen Oral (10 mg) 1 tablet, 3x a day BuSpar Oral 15 mg, 3x a day Flonase Nasal 2 sprays, daily Hydrochlorothiazide Oral (25 mg) 1 tablet, 2x a day Ibuprofen Oral (800 mg) 1 tablet, 3x a day Imitrex Oral 50 mg Metoprolol 50mg daily Percocet 5/325mg prn back pain Prilosec Oral 20 mg, 2x a day Topamax Oral 100 mg, 2x a day Tramadol HCL Oral (50 mg) 2 tablets, 2x a day Zoloft Oral 100 mg, at bedtime The source(s) of the original Home Medication information: Not obtained. The following Medications were given to the patient in the Emergency Department: None. The following Medications were prescribed to the patient: Benadryl (available over the counter): take according to label instructions. -- Garo Jiang MD Hydrocortisone 2.5% cream: apply to affected areas three times daily as needed for itching or rash, until symptoms improve. Dispense thirty (30) grams. No refills. Substitution is permissible. -- Garo Jiang MD
--- NOTE | 2017-05-09 21:53 | ED DISCHARGE INSTRUCTIONS ---
Patient: FRANCISCO SIMS General Instructions [facility] VisitID: [id number] [address] [place] [address] 57y, F Registration Date/Time: 05/09/2017 Moderate allergic and irritative contact dermatitis from detergents (right leg, mildly on left ankle). INSTRUCTIONS Warnings: Further evaluation is necessary. GENERAL WARNINGS: Return or contact your physician immediately if your condition worsens or changes unexpectedly, if not improving as expected, or if other problems arise. Your Current Medications: CONTINUE TAKING THE FOLLOWING MEDICATIONS: Abilify Oral : 30mg HS. Albuterol : 90 mcg. Baclofen Oral : Tablet 10 mg, 1 tablet 3x a day. BuSpar Oral : 15 mg 3x a day. Flonase Nasal : 2 sprays daily. Hydrochlorothiazide Oral : Tablet 25 mg, 1 tablet 2x a day. Ibuprofen Oral : Tablet 800 mg, 1 tablet 3x a day. Imitrex Oral : 50 mg, prn. Metoprolol 50mg daily *. Percocet 5/325mg prn back pain *. Prilosec Oral : 20 mg 2x a day. Topamax Oral : 100 mg 2x a day. Tramadol HCL Oral : Tablet 50 mg, 2 tablets 2x a day. Zoloft Oral : 100 mg at bedtime. Prescription Medications: Hydrocortisone 2.5% cream: apply to affected areas three times daily as needed for itching or rash, until symptoms improve. Dispense thirty (30) grams. No refills. Substitution is permissible. OTC Medications: Benadryl (available over the counter): take according to label instructions. Follow-up: Follow up with your doctor in five days if not better. Understanding of the discharge instructions verbalized by patient. (Electronically signed by Garo Jiang MD 05/09/2017 21:52)
--- NOTE | 2017-05-09 21:53 | ED MAR SUMMARY ---
..... Medication Administration Record [facility] [address] [place], [place] [id number] Patient: FRANCISCO SIMS Visit ID: [id number] 57y, F Weight: 62.1 kg Height/Length: 60 in BMI: 26.7 ALLERGIES: Codeine, Vicodin
--- NOTE | 2017-05-09 21:53 | ED DISCHARGE INSTRUCTIONS ---
Patient: FRANCISCO SIMS General Instructions [facility] VisitID: [id number] [address] [place] [address] 57y, F Registration Date/Time: 05/09/2017 Moderate allergic and irritative contact dermatitis from detergents (right leg, mildly on left ankle). INSTRUCTIONS Warnings: Further evaluation is necessary. GENERAL WARNINGS: Return or contact your physician immediately if your condition worsens or changes unexpectedly, if not improving as expected, or if other problems arise. Your Current Medications: CONTINUE TAKING THE FOLLOWING MEDICATIONS: Abilify Oral : 30mg HS. Albuterol : 90 mcg. Baclofen Oral : Tablet 10 mg, 1 tablet 3x a day. BuSpar Oral : 15 mg 3x a day. Flonase Nasal : 2 sprays daily. Hydrochlorothiazide Oral : Tablet 25 mg, 1 tablet 2x a day. Ibuprofen Oral : Tablet 800 mg, 1 tablet 3x a day. Imitrex Oral : 50 mg, prn. Metoprolol 50mg daily *. Percocet 5/325mg prn back pain *. Prilosec Oral : 20 mg 2x a day. Topamax Oral : 100 mg 2x a day. Tramadol HCL Oral : Tablet 50 mg, 2 tablets 2x a day. Zoloft Oral : 100 mg at bedtime. Prescription Medications: Hydrocortisone 2.5% cream: apply to affected areas three times daily as needed for itching or rash, until symptoms improve. Dispense thirty (30) grams. No refills. Substitution is permissible. OTC Medications: Benadryl (available over the counter): take according to label instructions. Follow-up: Follow up with your doctor in five days if not better. Understanding of the discharge instructions verbalized by patient. (Electronically signed by Garo Jiang MD 05/09/2017 21:52)
--- NOTE | 2017-05-09 21:53 | ED MED RECONCILIATION SUMMARY ---
Patient: FRANCISCO SIMS Medication Reconciliation Report [facility] VisitID: [id number] [address] [place] [address] 57y, F Registration Date/Time: 05/09/2017 Weight: 62.1 kg Height/Length: 60 in. BMI: 26.7 ALLERGIES: Codeine, Vicodin The patient's Home Medications are listed below: CONTINUE TAKING THE FOLLOWING MEDICATIONS: Abilify Oral 30mg, HS Albuterol 90 mcg Baclofen Oral (10 mg) 1 tablet, 3x a day BuSpar Oral 15 mg, 3x a day Flonase Nasal 2 sprays, daily Hydrochlorothiazide Oral (25 mg) 1 tablet, 2x a day Ibuprofen Oral (800 mg) 1 tablet, 3x a day Imitrex Oral 50 mg Metoprolol 50mg daily Percocet 5/325mg prn back pain Prilosec Oral 20 mg, 2x a day Topamax Oral 100 mg, 2x a day Tramadol HCL Oral (50 mg) 2 tablets, 2x a day Zoloft Oral 100 mg, at bedtime The source(s) of the original Home Medication information: Not obtained. The following Medications were given to the patient in the Emergency Department: None. The following Medications were prescribed to the patient: Benadryl (available over the counter): take according to label instructions. -- Garo Jiang MD Hydrocortisone 2.5% cream: apply to affected areas three times daily as needed for itching or rash, until symptoms improve. Dispense thirty (30) grams. No refills. Substitution is permissible. -- Garo Jiang MD
== END 2017-05-09 12:15 | disposition home or self-care (01) ==
LOC: ED SRH 10:41
DX: L24.0 Irritant contact dermatitis due to detergents (principal); K21.9 Gastro-esophageal reflux disease without esophagitis; I10 Essential (primary) hypertension; Z79.899 Other long term (current) drug therapy; F17.210 Nicotine dependence, cigarettes, uncomplicated; Z88.5 Allergy status to narcotic agent